=== PATIENT | female | born 1945 | race Caucasian/White ===

== ENCOUNTER 2018-03-04 12:08 | Observation (INO) | payer MEDICARE, BC ==
[~2018-03-04] VITALS: Ht 167.6 cm; Wt 79.2 kg
--- OUTSIDE RECORDS SUMMARY | 2018-03-04 12:11 | XMS REPORT | Clinical Summary ---
Author Author [facility] Address Unknown Phone Unavailable Care Team Providers Care Melt Room Operator Name Role Phone Iglesia Owens MD PCP Allergies No Known Allergies Medications End Date Status Medication Sig Dispensed Refills Start Date Active atorvastatin (LIPITOR) 40 Take 40 mg by 0 MG tablet mouth daily. Active donepezil (ARICEPT) 10 MG Take 10 mg by 0 tablet mouth nightly. Active fluticasone-vilanterol Inhale 1 0 (BREO ELLIPTA) 100-25 inhalations mcg/dose blister with daily as device powder for needed. inhalation Active Problems Problem Noted Date Hypokalemia 05/13/2017 Chest pain at rest 05/12/2017 Hyperlipidemia Dementia Asthma Encounters Care Team Description Date Type Specialty Jamie Magallanes MD Li, Frieda Noland MD Chest pain at rest (Primary Dx) 05/12/2017 Emergency General Internal Medicine - 05/14/2017 after 03/03/2017 Social History Date Tobacco Use Types Packs/Day Years Used Never Smoker Smokeless Tobacco: Never Used Alcohol Use Drinks/Week oz/Week Comments No Sex Assigned at Date Recorded Not on file Industry Job Start Date Occupation Not on file Not on file Not on file Travel End Travel History Travel Start No recent travel history available. Last Filed Vital Signs Time Taken Vital Sign Reading 05/14/2017 11:07 AM INTERNATIONAL RELATIONS PROFESSOR Blood Pressure 99/57 05/14/2017 11:07 AM INTERNATIONAL RELATIONS PROFESSOR Pulse 91 05/14/2017 11:07 AM INTERNATIONAL RELATIONS PROFESSOR Temperature 36.7 C (98.1 F) 05/14/2017 11:07 AM INTERNATIONAL RELATIONS PROFESSOR Respiratory Rate 18 05/14/2017 11:07 AM INTERNATIONAL RELATIONS PROFESSOR Oxygen Saturation 96% - Inhaled Oxygen - Concentration 05/12/2017 2:33 PM INTERNATIONAL RELATIONS PROFESSOR Weight 88.5 kg (195 lb 1.7 oz) 05/12/2017 2:33 PM INTERNATIONAL RELATIONS PROFESSOR Height 167.6 cm (5' 6") 05/12/2017 2:33 PM INTERNATIONAL RELATIONS PROFESSOR Body Mass Index 31.49 Plan of Treatment Health Maintenance Due Date Last Done Comments BREAST CANCER SCREENING 11/19/1997 COLON CANCER SCREENING 11/19/1997 SHINGRIX VACCINE (1 of 2) 11/19/1997 ZOSTER VACCINE 2007 PNEUMOCOCCAL 11/19/2012 POLYSACCHARIDE VACCINE AGE 65 AND OVER PNEUMOCOCCAL-13 11/19/2012 INFLUENZA VACCINE 11/05/2017 Procedures Comments Procedure Name Priority Date/Time Associated Diagnosis ZZESTIMATED GFR STAT 05/14/2017 9:31 AM INTERNATIONAL RELATIONS PROFESSOR BASIC METABOLIC PANEL STAT 05/14/2017 9:31 AM INTERNATIONAL RELATIONS PROFESSOR ECHOCARDIOGRAM 2D Routine 05/13/2017 COMPLETE W MMODE SPECTRAL 8:19 AM INTERNATIONAL RELATIONS PROFESSOR COLOR DOPPLER ([id number]) POC GLUCOSE Routine 05/13/2017 7:30 AM INTERNATIONAL RELATIONS PROFESSOR ZZESTIMATED GFR Routine 05/13/2017 5:10 AM INTERNATIONAL RELATIONS PROFESSOR TROPONIN Routine 05/13/2017 5:10 AM INTERNATIONAL RELATIONS PROFESSOR BASIC METABOLIC PANEL Routine 05/13/2017 5:10 AM INTERNATIONAL RELATIONS PROFESSOR HC COMPLETE BLD COUNT Routine 05/13/2017 W/AUTO DIFF 5:10 AM INTERNATIONAL RELATIONS PROFESSOR ZZESTIMATED GFR Timed 05/13/2017 1:50 AM INTERNATIONAL RELATIONS PROFESSOR THYROID STIMULATING Timed 05/13/2017 HORMONE 1:50 AM INTERNATIONAL RELATIONS PROFESSOR T3, FREE Timed 05/13/2017 1:50 AM INTERNATIONAL RELATIONS PROFESSOR PROTHROMBIN TIME WITH INR Timed 05/13/2017 1:50 AM INTERNATIONAL RELATIONS PROFESSOR PARTIAL THROMBOPLASTIN Timed 05/13/2017 TIME (PTT) 1:50 AM INTERNATIONAL RELATIONS PROFESSOR MAGNESIUM LEVEL Timed 05/13/2017 1:50 AM INTERNATIONAL RELATIONS PROFESSOR LIPID PANEL Timed 05/13/2017 1:50 AM INTERNATIONAL RELATIONS PROFESSOR HEMOGLOBIN A1C Timed 05/13/2017 1:50 AM INTERNATIONAL RELATIONS PROFESSOR COMPREHENSIVE METABOLIC Timed 05/13/2017 PANEL 1:50 AM INTERNATIONAL RELATIONS PROFESSOR HC COMPLETE BLD COUNT Timed 05/13/2017 W/AUTO DIFF 1:50 AM INTERNATIONAL RELATIONS PROFESSOR B NATRIURETIC PEPTIDE Timed 05/13/2017 1:50 AM INTERNATIONAL RELATIONS PROFESSOR TROPONIN Timed 05/13/2017 1:50 AM INTERNATIONAL RELATIONS PROFESSOR ECG 12-LEAD Routine 05/12/2017 9:15 PM INTERNATIONAL RELATIONS PROFESSOR TROPONIN Timed 05/12/2017 8:49 PM INTERNATIONAL RELATIONS PROFESSOR TROPONIN Timed 05/12/2017 7:22 PM INTERNATIONAL RELATIONS PROFESSOR XR CHEST 1 VW PORTABLE STAT 05/12/2017 4:32 PM INTERNATIONAL RELATIONS PROFESSOR ECG 12-LEAD Routine 05/12/2017 4:17 PM INTERNATIONAL RELATIONS PROFESSOR TROPONIN Timed 05/12/2017 3:20 PM INTERNATIONAL RELATIONS PROFESSOR ECG 12-LEAD STAT 05/12/2017 11:28 AM INTERNATIONAL RELATIONS PROFESSOR ZZESTIMATED GFR STAT 05/12/2017 11:07 AM INTERNATIONAL RELATIONS PROFESSOR B NATRIURETIC PEPTIDE STAT 05/12/2017 11:07 AM INTERNATIONAL RELATIONS PROFESSOR TROPONIN STAT 05/12/2017 11:07 AM INTERNATIONAL RELATIONS PROFESSOR HEPATIC FUNCTION PANEL STAT 05/12/2017 11:07 AM INTERNATIONAL RELATIONS PROFESSOR BASIC METABOLIC PANEL STAT 05/12/2017 11:07 AM INTERNATIONAL RELATIONS PROFESSOR PARTIAL THROMBOPLASTIN STAT 05/12/2017 TIME (PTT) 11:07 AM INTERNATIONAL RELATIONS PROFESSOR PROTHROMBIN TIME WITH INR STAT 05/12/2017 11:07 AM INTERNATIONAL RELATIONS PROFESSOR HC COMPLETE BLD COUNT STAT 05/12/2017 W/AUTO DIFF 11:07 AM INTERNATIONAL RELATIONS PROFESSOR after 03/03/2017 Results * Estimated GFR (05/14/2017 9:31 AM INTERNATIONAL RELATIONS PROFESSOR) Only the most recent of 4 results within the time period is included. GFR Non Af Amer 62 mL/min/1.73 m2 [facility] PATHOLOGY AND Cap That [facility] GFR Af Amer 75 mL/min/1.73 m2 [facility] OF Comment: PATHOLOGY AND Chronic kidney disease: <60 GENOMIC MEDICINE mL/min/1.73m2 Kidney failure: <15 mL/min/1.73m2 The estimated GFR is calculated from the IDMS-traceable Modification of Diet in Renal Disease Equation. The accuracy of the calculation is poor when the creatinine is normal. Calculated values >90 mL/min/1.73m2 are not reported. This equation has not been validated in children (<18 years), women, the elderly (>70 years), or ethnic groups other than Caucasians and Americans. Specimen Plasma specimen Performing Organization Address [facility] Cent[facility]ode Phone Number [place] [id number] [place] [id number] [place] [address] * Basic metabolic panel (05/14/2017 9:31 AM INTERNATIONAL RELATIONS PROFESSOR) Only the most recent of 3 results within the time period is included. Sodium 139 135 - 150 mEq/L [facility] OF PATHOLOGY AND Cap That [facility] Potassium 3.3 (L) 3.5 - 5.0 mEq/L [facility] OF PATHOLOGY AND Cap That [facility] Chloride 105 100 - 109 mEq/L [facility] OF PATHOLOGY AND Cap That [facility] CO2 23 (L) 24 - 32 mmol/L [facility] OF PATHOLOGY AND Cap That MEDICINE Anion gap 11 7 - 15 mEq/L [facility] OF Comment: PATHOLOGY AND Starting from July [facility] , anion gap calculation no longer incorporates potassium. Please note the change. BUN 12 7 - 18 mg/dL [facility] OF PATHOLOGY AND Cap That [facility] Creatinine 0.9 0.8 - 1.5 mg/dL [facility] OF PATHOLOGY AND Cap That [facility] Glucose 179 (H) 65 - 100 mg/dL [facility] PATHOLOGY AND Cap That MEDICINE Calcium 8.4 (L) 8.6 - 10.7 mg/dL [facility] PATHOLOGY AND Cap That [facility] Specimen Plasma specimen Performing Organization Address City/[facility] Centercode Phone Number [place] [address] [place] [address] PATHOLOGY AND GENOMIC MEDICINE * Echocardiogram complete w contrast and 3D if needed (05/13/2017 8:19 AM INTERNATIONAL RELATIONS PROFESSOR) Velocity Ratio (V1/V2) 0.91 m/s [facility] IVS,d 0.95 0.6 - 1.2 cm [facility] EF 49.34 % [facility] LVPWD,d 1.04 cm [facility] AoV Mean PG 4.05 mmHg [facility] AV LVOT peak gradient 6.27 mmHg [facility] MV mean gradient 0.85 mmHg [facility] MV valve area p 1/2 4.12 cm2 [facility] method PV Pk Grad 3.85 mmHg [facility] E/A ratio 1.12 [facility] E wave decelartion time 184.20 msec [facility] LVOT Diam,S 2.04 cm [facility] LVOT area 3.27 cm2 [facility] LVOT Vmax 1.25 m/s [facility] LVOT VTI 0.26 m [facility] AoV Peak PG 7.60 mmHg [facility] MV Peak E Flaco 0.74 m/s [facility] MV stenosis pressure 1/2 53.42 ms [facility] time MV Peak A Flaco 0.66 m/s [facility] Ao Root Diameter 2.76 cm [facility] AoV Area, Vmax 2.97 cm2 [facility] AoV Area, VTI 2.83 cm2 [facility] AoV Vmax 1.38 m/s [facility] IVS/LVPW,2D 0.92 [facility] Left Atrium Dimension 3.64 cm [facility] Anterior LV,d 3.83 cm [facility] LV,s 2.89 cm [facility] PV VMAX 0.98 m/s [facility] TR Vpeak 2.28 mm/s [facility] MV E A ratio 1.11 mmHg [facility] TR pk grad 20.81 mmHg [facility] MR peak grad 2.99 mmHg [facility] Ao Root Diameter 2.76 cm [facility] LV SYS VOL 32.02 ml [facility] LV CONWAY VOL 63.20 ml [facility] LV SV Teich 2D 31.18 ml [facility] LV Vol s Teich PSAX 32.02 ml [facility] LVOT CO 5.08 l/min [facility] LVOT HR for LVOT CO 60.75 bpm [facility] MV Vmax 0.87 m [facility] MV VTI Tips 0.25 m [facility] AoV Vmn 0.96 [facility] IVS s 2D 1.23 [facility] LV FS Cube 2D 24.50 [facility] LV FS Teich 2D 24.50 [facility] AoV VTI 0.30 m [facility] LV EF,2D 56.97 % [facility] MV AE ratio 0.90 [facility] LVOT Vmn 0.85 [facility] Aov area Vmn 2.91 cm2 [facility] LVOT mean grad 3.24 mmHg [facility] MAX Pred HR 150.52 [facility] 85 of MPHR 127.94 [facility] Calc MPHR 150.52 bpm [facility] IVS pct thck PLAX 29.52 % [facility] LV SV Cube 2D 32.05 ml [facility] LV vol d cube 2D 56.27 ml [facility] LV vol s cube 2D 24.21 ml [facility] LVPW pct thck PLAX 33.55 % [facility] LVPW s PLAX 1.38 cm [facility] MV Decel slope 3.99 m/s2 [facility] Pred Exer Dur R1 6.88 [facility] Pred METS R1 5.67 [facility] Narrative Performed At [facility] There is mild left ventricular concentric hypertrophy. Left Ventricular ejection fraction is 45 - 50%. Right ventricular size is normal. Left atrium size is mildly dilated. No pericardial effusion The mitral valve appears thickened. Trace mitral valve regurgitation There is moderate sclerosis of the aortic valve leaflets. Spectral Doppler shows impaired relaxation pattern of left ventricular diastolic filling. Performing Organization Address City/[facility]/Zipcode Phone Number [facility] [address] [place] [address] * POC glucose (05/13/2017 7:30 AM INTERNATIONAL RELATIONS PROFESSOR) POC glucose 87 65 - 100 mg/dL [facility] OF Comment: PATHOLOGY AND Meter ID: [id number] GENOMIC MEDICINE Dip Tanker: Ashley Ordaz Performing Organization Address City/State/Zipcode Phone Number [facility] OF [address] [place], [place] [address] [place] [address] PATHOLOGY AND GENOMIC MEDICINE * Troponin (05/13/2017 5:10 AM INTERNATIONAL RELATIONS PROFESSOR) Only the most recent of 6 results within the time period is included. Troponin <0.01 0.00 - 0.60 ng/mL [facility] OF Comment: PATHOLOGY AND 0.11 - 1.49 GENOMIC MEDICINE ng/mlMay indicate increased risk of acute coronary syndrome. >=1.5 ng/ml Consistent with acute myocardial infarction. The diagnostic value of a single normal or non-diagnostic result is questionable.Serial samples at 2-6 hour intervals are required to rule out acute myocardial injury. Specimen Plasma specimen Performing Organization Address City/State/Zipcode Phone Number [facility] [address] [address] PATHOLOGY AND GENOMIC MEDICINE * CBC with platelet and differential (05/13/2017 5:10 AM INTERNATIONAL RELATIONS PROFESSOR) Only the most recent of 3 results within the time period is included. WBC 6.7 4.2 - 11.0 k/uL [facility] OF PATHOLOGY AND GENOMIC MEDICINE RBC 4.57 4.04 - 5.86 m/uL [facility] OF PATHOLOGY AND GENOMIC MEDICINE HGB 12.8 11.5 - 15.3 g/dL [facility] OF PATHOLOGY AND GENOMIC MEDICINE HCT 39.3 34.0 - 45.0 % [facility] PATHOLOGY AND GENOMIC MEDICINE MCV 86.0 80.0 - 98.0 fL [facility] OF PATHOLOGY AND GENOMIC MEDICINE MCH 28.0 27.0 - 34.0 pg [facility] OF PATHOLOGY AND GENOMIC MEDICINE MCHC 32.6 31.5 - 36.5 g/dL [facility] OF PATHOLOGY AND GENOMIC MEDICINE RDW - SD 39.8 37.0 - 51.0 fL [facility] OF PATHOLOGY AND GENOMIC MEDICINE MPV 11.4 (H) 7.4 - 10.4 fL [facility] PATHOLOGY AND GENOMIC MEDICINE Platelet count 303 150 - 400 k/uL [facility] OF PATHOLOGY AND GENOMIC MEDICINE Nucleated RBC 0.00 /100 WBC [facility] OF PATHOLOGY AND GENOMIC MEDICINE Neutrophils 49.8 36.0 - 66.0 % [facility] OF PATHOLOGY AND GENOMIC MEDICINE Lymphocytes 33.6 24.0 - 44.0 % [facility] OF PATHOLOGY AND GENOMIC MEDICINE Monocytes 8.5 (H) 0.0 - 6.0 % [facility] OF PATHOLOGY AND GENOMIC MEDICINE Eosinophils 6.5 (H) 0.0 - 6.0 % [facility] OF PATHOLOGY AND GENOMIC MEDICINE Basophils 1.3 (H) 0.0 - 1.2 % [facility] PATHOLOGY AND GENOMIC MEDICINE Immature granulocytes 0.3 0.0 - 1.0 % [facility] OF PATHOLOGY AND Cap That MEDICINE Specimen Blood Performing Organization Address [facility] [place]erc[place] [address] PATHOLOGY AND Cap That MEDICINE * Partial thromboplastin time, activated (05/13/2017 1:50 AM INTERNATIONAL RELATIONS PROFESSOR) Only the most recent of 2 results within the time period is included. PTT 30.9 23.0 - 36.0 sec [facility] Comment: PATHOLOGY AND PTT therapeutic range for GENOMIC MEDICINE unfractionated heparin is 61.0-112.0 seconds which corresponds to Anti-Xa 0.3-0.7 U/ml. Note:Change in Panic Value The PTT Panic Value is changing from 110 sec. to 100 sec. due to new instrumentation and reagents. Correlation studies have been performed to validate this result. Specimen Blood Performing Organization Address [facility] [place] [address] PATHOLOGY AND Cap That MEDICINE * Prothrombin time with INR (05/13/2017 1:50 AM INTERNATIONAL RELATIONS PROFESSOR) Only the most recent of 2 results within the time period is included. Prothrombin time 13.3 12.0 - 15.0 sec [facility] OF PATHOLOGY AND Cap That MEDICINE INR 1.00 0.92 - 1.12 [facility] Comment: PATHOLOGY AND For patients on anticoagulant GENOMIC MEDICINE therapy, reference ranges below: Indication: INR Value Treatment of Venous Thrombosis, 2.0-3.0 pulmonary emboli, or prophylaxis of a venous thrombosis, or systemic emboli. High dose, high risk patients 3.0-4.5 with mechanical valves. NOTE:INR values over 3.0 are sometimes associated with gastrointestinal hemorrhage, especially values over 4.0. Specimen Blood Performing Organization Address [facility] [place] [address] PATHOLOGY AND Cap That MEDICINE * T3, free (05/13/2017 1:50 AM INTERNATIONAL RELATIONS PROFESSOR) T3, free 2.49 2.18 - 3.98 pmol/L [facility] OF PATHOLOGY AND Cap That MEDICINE Specimen Plasma specimen Performing Organization Address City/[facility] [place] [address] PATHOLOGY AND Cap That MEDICINE * Thyroid stimulating hormone (05/13/2017 1:50 AM INTERNATIONAL RELATIONS PROFESSOR) TSH 1.80 0.38 - 4.82 uIU/mL [facility] OF PATHOLOGY AND GENOMIC MEDICINE Specimen Plasma specimen Performing Organization Address City/[facility] [place] [address] PATHOLOGY AND Cap That MEDICINE * B natriuretic peptide (05/13/2017 1:50 AM INTERNATIONAL RELATIONS PROFESSOR) Only the most recent of 2 results within the time period is included. BNP 39 0 - 100 pg/mL [facility] OF PATHOLOGY AND GENOMIC MEDICINE Specimen Blood Performing Organization Address [facility] [place]erc[place] [address] PATHOLOGY AND Cap That MEDICINE * Magnesium level (05/13/2017 1:50 AM INTERNATIONAL RELATIONS PROFESSOR) Magnesium 2.00 1.60 - 2.40 mg/dL [facility] OF PATHOLOGY AND GENOMIC MEDICINE Specimen Plasma specimen Performing Organization Address [facility] [place] [address] PATHOLOGY AND Cap That MEDICINE * Hemoglobin A1c (05/13/2017 1:50 AM INTERNATIONAL RELATIONS PROFESSOR) Hemoglobin A1C 5.9 4.0 - 6.0 % [facility] Comment: PATHOLOGY AND GENOMIC MEDICINE Less than 6% - Goal of therapy for Type II Diabetes Less than 7%-Goal of therapy for Type I Diabetes Less than 8%-Accepta ble control for Type I or Type II Diabetes Greater than 8%-Unacceptabl e control; action indicated. ([id number]) Specimen Blood Performing Organization Address [facility] [place] [address] PATHOLOGY AND Cap That MEDICINE * Lipid panel (05/13/2017 1:50 AM INTERNATIONAL RELATIONS PROFESSOR) Cholesterol 202 (H) 120 - 200 mg/dL [facility] OF PATHOLOGY AND GENOMIC MEDICINE Triglycerides 124 50 - 150 mg/dL [facility] OF PATHOLOGY AND GENOMIC MEDICINE HDL cholesterol 34 (L) 40 - 60 mg/dL [facility] OF PATHOLOGY AND GENOMIC MEDICINE LDL cholesterol 160Comment: Result obtained by mg/dL [facility] direct LDL measurement PATHOLOGY AND GENOMIC MEDICINE Specimen Plasma specimen Performing Organization Address City/[facility] Centercode Phone Number [facility] [address] [place] [place] [address] PATHOLOGY AND GENOMIC MEDICINE * Comprehensive metabolic panel (05/13/2017 1:50 AM INTERNATIONAL RELATIONS PROFESSOR) Sodium 139 135 - 150 mEq/L [facility] OF PATHOLOGY AND GENOMIC MEDICINE Potassium 2.9 (LL) 3.5 - 5.0 mEq/L [facility] OF Comment: PATHOLOGY AND Results called to and read [facility] back by Crys Ga/OBS at 05/13/201702:42by ln. Chloride 104 100 - 109 mEq/L [facility] OF PATHOLOGY AND GENOMIC MEDICINE CO2 26 24 - 32 mmol/L [facility] OF PATHOLOGY AND GENOMIC MEDICINE Anion gap 9 7 - 15 mEq/L [facility] OF Comment: PATHOLOGY AND Starting from July [facility] , anion gap calculation no longer incorporates potassium. Please note the change. BUN 16 7 - 18 mg/dL [facility] OF PATHOLOGY AND GENOMIC MEDICINE Creatinine 0.6 (L) 0.8 - 1.5 mg/dL [facility] OF PATHOLOGY AND GENOMIC MEDICINE Glucose 86 65 - 100 mg/dL [facility] OF PATHOLOGY AND GENOMIC MEDICINE Calcium 8.3 (L) 8.6 - 10.7 mg/dL [facility] OF PATHOLOGY AND GENOMIC MEDICINE Protein 6.6 6.3 - 8.2 g/dL [facility] OF PATHOLOGY AND GENOMIC MEDICINE Albumin 3.1 (L) 3.2 - 5.0 g/dL [facility] OF PATHOLOGY AND GENOMIC MEDICINE A/G ratio 0.9 0.7 - 3.8 [facility] OF PATHOLOGY AND GENOMIC MEDICINE Alkaline phosphatase 77 30 - 120 U/L [facility] OF PATHOLOGY AND GENOMIC MEDICINE AST 10 (L) 15 - 37 U/L [facility] OF PATHOLOGY AND GENOMIC MEDICINE ALT 14 (L) 30 - 65 U/L [facility] OF PATHOLOGY AND GENOMIC MEDICINE Total bilirubin 0.5 0.2 - 1.2 mg/dL [facility] OF PATHOLOGY AND GENOMIC MEDICINE Specimen Plasma specimen Performing Organization Address City/[facility]/Zipcode Phone Number [facility] [address] [place] [address] PATHOLOGY AND GENOMIC MEDICINE * ECG 12 lead (05/12/2017 9:15 PM INTERNATIONAL RELATIONS PROFESSOR) Only the most recent of 3 results within the time period is included. Ventricular rate 62 [facility] Atrial rate 62 [facility] NM interval 130 [facility] QRSD interval 86 [facility] QT interval 426 [facility] QTC interval 432 [facility] P axis 1 53 [facility] QRS axis 1 53 [facility] T wave axis 59 [facility] MUSE EKG impression Normal sinus rhythm-Normal [facility] MUSE ECG-In automated comparison with ECG of 12-MAY-2017 16:17,-No significant change was found- Performing Organization Address [facility]ercofl Phone Number [facility] MUSE [address] [place] [address] * XR Chest 1 Vw Portable (05/12/2017 4:32 PM INTERNATIONAL RELATIONS PROFESSOR) Narrative Performed At EXAMINATION:XR CHEST 1 VW PORTABLE [facility] CLINICAL HISTORY:Chest Pain COMPARISON:None IMPRESSION: Unremarkable single view chest The lungs are clear. The heart is not enlarged. Mild vascular ectasia of the aorta is present The bony structures are within normal limits. [id number] Procedure Note Hm Interface, Radiology Results Incoming - 05/12/2017 4:38 PM INTERNATIONAL RELATIONS PROFESSOR EXAMINATION: XR CHEST 1 VW PORTABLE CLINICAL HISTORY: Chest Pain COMPARISON: None IMPRESSION: Unremarkable single view chest The lungs are clear. The heart is not enlarged. Mild vascular ectasia of the aorta is present The bony structures are within normal limits. [id number] Performing Organization Address [facility]ercofl Phone Number [facility] [address] [place] [address] * Hepatic function panel (05/12/2017 11:07 AM INTERNATIONAL RELATIONS PROFESSOR) Albumin 3.3 3.2 - 5.0 g/dL [facility] PATHOLOGY AND GENOMIC MEDICINE Total bilirubin 0.5 0.2 - 1.2 mg/dL [facility] OF PATHOLOGY AND GENOMIC MEDICINE Bilirubin direct 0.1 0.0 - 0.4 mg/dL [facility] OF PATHOLOGY AND GENOMIC MEDICINE Alkaline phosphatase 84 30 - 120 U/L [facility] OF PATHOLOGY AND GENOMIC MEDICINE Protein 7.0 6.3 - 8.2 g/dL [facility] PATHOLOGY AND GENOMIC MEDICINE ALT 13 (L) 30 - 65 U/L [facility] OF PATHOLOGY AND GENOMIC MEDICINE AST 7 (L) 15 - 37 U/L [facility] OF PATHOLOGY AND GENOMIC MEDICINE Specimen Plasma specimen Performing Organization Address City/State/Zipcode Phone Number [facility] [place] [address] PATHOLOGY AND GENOMIC MEDICINE after 03/03/2017 Insurance Payer Benefit Subscriber ID Type Phone Address Plan / Group BCBS BCBS xxxxxxxxx PPO CHOICE PPO/[facility] [employer] EMPL PPO MEDICARE MEDICARE xxxxxxxxxx Medicare [place], [place] PART A AND B Advance Directives Patient has advance care planning documents on file. For more information, hilary null contact: Leobardo Forrest [address] [place] [address]
[2018-03-04] MEDS ORDERED: ALBUTEROL/IPRATROPIUM 3 ML NEB NEB ONE (12:30)
[2018-03-04] MEDS ORDERED: METHYLPREDNISOLONE SOD SUCC 125 MG/2ML VIAL IV ONE (12:30)
--- NOTE | 2018-03-04 14:15 | Diagnostic Imaging Report ---
EXAMINATION: CHEST 2 VIEWS INDICATION: Concern for pneumonia, bilateral wheezing for several days COMPARISON: None FINDINGS: PA and lateral views TUBES and LINES: None. LUNGS: Mild flattening of the diaphragms suggestive of air trapping. No interstitial thickening or consolidation. No soft tissue mass mild bronchial wall thickening. PLEURA: No pleural effusion or pneumothorax. HEART AND MEDIASTINUM: The heart is normal in size. The descending thoracic aorta is ectatic. BONES AND SOFT TISSUES: The bones are diffusely demineralized. No focal osseous lesions. Soft tissues are unremarkable. UPPER ABDOMEN: No free air under the diaphragm. IMPRESSION: Mild pulmonary hyperinflation consistent with small airways disease. Mild bronchial wall thickening suggestive of bronchitis. No confluent infiltrates to suggest pneumonia. Signed by: Dr. Caron Magana MD on 03/04/2018 2:11 PM
[2018-03-04 14:17] LABS: BASOPHILS # (AUTO) 0.1 (0.0-0.1); BASOPHILS % 1.2 % (0.0-1.0); EOSINOPHILS # (AUTO) 0.4 (0.0-0.4); EOSINOPHILS % 4.5 % (0.0-6.0); HEMATOCRIT 44.1 % (34.2-44.1); HEMOGLOBIN 14.6 g/dL (12.0-16.0); LYMPHOCYTES # (AUTO) 2.1 (1.0-3.2); LYMPHOCYTES % 22.3 % (18.0-39.1); MEAN CORPUSCULAR HEMOGLOBIN 28.8 pg (28-32); MEAN CORPUSCULAR HGB CONC 33.1 g/dL (31-35); MONOCYTES # (AUTO) 0.9 (0.2-0.8); NEUTROPHILS # (AUTO) 5.9 (2.1-6.9); NEUTROPHILS % 62.7 % (38.7-80.0); PLATELET COUNT 350 x10e3/uL (140-360); RED BLOOD COUNT 5.07 x10e6/uL (3.6-5.1); RED CELL DISTRIBUTION WIDTH 12.3 % (11.7-14.4)
[2018-03-04 14:34] LABS: ALANINE AMINOTRANSFERASE 10 IU/L (0-55); ALBUMIN 4.1 g/dL (3.5-5.0); ALBUMIN/GLOBULIN RATIO 1.5 (0.8-2.0); ALKALINE PHOSPHATASE 74 IU/L (40-150); ANION GAP 13.5 mmol/L (8-16); BLOOD UREA NITROGEN 21 mg/dL (7-26); BUN/CREATININE RATIO 30 (6-25); CALCIUM 9.8 mg/dL (8.4-10.2); CARBON DIOXIDE 24 mmol/L (22-29); CHLORIDE 103 mmol/L (98-107); EST GLOMERULAR FILTRATION RATE > 60 ML/MIN (60-); GLUCOSE 97 mg/dL (74-118); POTASSIUM 3.5 mmol/L (3.5-5.1); SODIUM 137 mmol/L (136-145)
--- OUTSIDE RECORDS SUMMARY | 2018-03-04 19:18 | XMS REPORT ---
Author Author [facility] Address Unknown Phone Unavailable Care Team Providers Care Fence Rider Name Role Phone Mary CARVALHO Unavailable Unavailable Problems This patient has no known problems. Allergies, Adverse Reactions, Alerts This patient has no known allergies or adverse reactions. Medications This patient has no known medications. Results Test Description Test Time Test Comments Text Results Atomic Results Result Comments CHEST 2 VIEWS 2018-03-04 14:10:00 [facility] [address] [address] Patient Name: LO CELIS MR #: [id number] : 1945 Age/Sex: 72/F Req #: [id number] Adm Physician: Ordered by: NELLY DO [employer] Report #: [id number] Location: ER Room/Bed: Procedure: [id number] DX/CHEST 2 VIEWS Exam Date: Exam Time: REPORT STATUS: Signed EXAMINATION: CHEST 2 VIEWS INDICATION: Concern for pneumonia, bilateral wheezing for several days COMPARISON: None FINDINGS: PA and lateral views TUBES and LINES: None. LUNGS: Mild flattening of the diaphragms suggestive of air trapping. No interstitial thickening or consolidation. No soft tissue mass mild bronchial wall thickening. PLEURA: No pleural effusion or pneumothorax. HEART AND MEDIASTINUM: The heart is normal in size. The descending thoracic aorta is ectatic. BONES AND SOFT TISSUES: The bones are diffusely demineralized. No focal osseous lesions. Soft tissues are unremarkable. UPPER ABDOMEN: No free air under the diaphragm. IMPRESSION: Mild pulmonary hyperinflation consistent with small airways disease. Mild bronchial wall thickening suggestive of bronchitis. No confluent infiltrates to suggest pneumonia. Signed by: Dr. Steffanie Magana MD on 03/04/2018 2:11 PM Dictated By: STEFFANIE MAGANA MD [id number] Transcribed By: GEORGINA on 03/04/18 1411 COPY TO: NELLY DO NP
--- OUTSIDE RECORDS SUMMARY | 2018-03-04 19:18 | XMS REPORT | Clinical Summary ---
Author Author [facility] Address Unknown Phone Unavailable Care Team Providers Care Process Description Writer Name Role Phone Iglesia Owens MD PCP [...] Taken Vital Sign Reading 05/14/2017 11:07 AM JEWELRY SETTER Blood Pressure 99/57 05/14/2017 11:07 AM JEWELRY SETTER Pulse 91 05/14/2017 11:07 AM JEWELRY SETTER Temperature 36.7 C (98.1 F) 05/14/2017 11:07 AM JEWELRY SETTER Respiratory Rate 18 05/14/2017 11:07 AM JEWELRY SETTER Oxygen Saturation 96% - Inhaled Oxygen - Concentration 05/12/2017 2:33 PM JEWELRY SETTER Weight 88.5 kg (195 lb 1.7 oz) 05/12/2017 2:33 PM JEWELRY SETTER Height 167.6 cm (5' 6") 05/12/2017 2:33 PM JEWELRY SETTER Body Mass Index 31.49 Plan of Treatment Health Maintenance Due Date Last Done Comments BREAST CANCER SCREENING 11/19/1997 COLON CANCER SCREENING 11/19/1997 SHINGRIX VACCINE (1 of 2) 11/19/1997 ZOSTER VACCINE 2007 PNEUMOCOCCAL 11/19/2012 POLYSACCHARIDE VACCINE AGE 65 AND OVER PNEUMOCOCCAL-13 11/19/2012 INFLUENZA VACCINE 11/05/2017 Procedures Comments Procedure Name Priority Date/Time Associated Diagnosis ZZESTIMATED GFR STAT 05/14/2017 9:31 AM JEWELRY SETTER BASIC METABOLIC PANEL STAT 05/14/2017 9:31 AM JEWELRY SETTER ECHOCARDIOGRAM 2D Routine 05/13/2017 COMPLETE W MMODE SPECTRAL 8:19 AM JEWELRY SETTER COLOR DOPPLER ([id number]) POC GLUCOSE Routine 05/13/2017 7:30 AM JEWELRY SETTER ZZESTIMATED GFR Routine 05/13/2017 5:10 AM JEWELRY SETTER TROPONIN Routine 05/13/2017 5:10 AM JEWELRY SETTER BASIC METABOLIC PANEL Routine 05/13/2017 5:10 AM JEWELRY SETTER HC COMPLETE BLD COUNT Routine 05/13/2017 W/AUTO DIFF 5:10 AM JEWELRY SETTER ZZESTIMATED GFR Timed 05/13/2017 1:50 AM JEWELRY SETTER THYROID STIMULATING Timed 05/13/2017 HORMONE 1:50 AM JEWELRY SETTER T3, FREE Timed 05/13/2017 1:50 AM JEWELRY SETTER PROTHROMBIN TIME WITH INR Timed 05/13/2017 1:50 AM JEWELRY SETTER PARTIAL THROMBOPLASTIN Timed 05/13/2017 TIME (PTT) 1:50 AM JEWELRY SETTER MAGNESIUM LEVEL Timed 05/13/2017 1:50 AM JEWELRY SETTER LIPID PANEL Timed 05/13/2017 1:50 AM JEWELRY SETTER HEMOGLOBIN A1C Timed 05/13/2017 1:50 AM JEWELRY SETTER COMPREHENSIVE METABOLIC Timed 05/13/2017 PANEL 1:50 AM JEWELRY SETTER HC COMPLETE BLD COUNT Timed 05/13/2017 W/AUTO DIFF 1:50 AM JEWELRY SETTER B NATRIURETIC PEPTIDE Timed 05/13/2017 1:50 AM JEWELRY SETTER TROPONIN Timed 05/13/2017 1:50 AM JEWELRY SETTER ECG 12-LEAD Routine 05/12/2017 9:15 PM JEWELRY SETTER TROPONIN Timed 05/12/2017 8:49 PM JEWELRY SETTER TROPONIN Timed 05/12/2017 7:22 PM JEWELRY SETTER XR CHEST 1 VW PORTABLE STAT 05/12/2017 4:32 PM JEWELRY SETTER ECG 12-LEAD Routine 05/12/2017 4:17 PM JEWELRY SETTER TROPONIN Timed 05/12/2017 3:20 PM JEWELRY SETTER ECG 12-LEAD STAT 05/12/2017 11:28 AM JEWELRY SETTER ZZESTIMATED GFR STAT 05/12/2017 11:07 AM JEWELRY SETTER B NATRIURETIC PEPTIDE STAT 05/12/2017 11:07 AM JEWELRY SETTER TROPONIN STAT 05/12/2017 11:07 AM JEWELRY SETTER HEPATIC FUNCTION PANEL STAT 05/12/2017 11:07 AM JEWELRY SETTER BASIC METABOLIC PANEL STAT 05/12/2017 11:07 AM JEWELRY SETTER PARTIAL THROMBOPLASTIN STAT 05/12/2017 TIME (PTT) 11:07 AM JEWELRY SETTER PROTHROMBIN TIME WITH INR STAT 05/12/2017 11:07 AM JEWELRY SETTER HC COMPLETE BLD COUNT STAT 05/12/2017 W/AUTO DIFF 11:07 AM JEWELRY SETTER after 03/03/2017 Results * Estimated GFR (05/14/2017 9:31 AM JEWELRY SETTER) Only the most recent of 4 results within the time period is included. GFR Non Af Amer 62 mL/min/1.73 m2 [facility] DEPARTMENT OF PATHOLOGY AND [employer] [place] [facility] GFR Af Amer 75 mL/min/1.73 m2 [facility] DEPARTMENT OF Comment: PATHOLOGY AND Chronic kidney [...] Americans. Specimen Plasma specimen Performing Organization Address [facility] Cent[facility]ode Phone Number [id number] [place] [address] * Basic metabolic panel (05/14/2017 9:31 AM JEWELRY SETTER) Only the most recent of 3 results within the time period is included. Sodium 139 135 - 150 mEq/L [facility] DEPARTMENT OF PATHOLOGY AND [employer] [place] [facility] Potassium 3.3 (L) 3.5 - 5.0 mEq/L [facility] DEPARTMENT OF PATHOLOGY AND [employer] [place] [facility] Chloride 105 100 - 109 mEq/L [facility] DEPARTMENT OF PATHOLOGY AND [employer] [place] [facility] CO2 23 (L) 24 - 32 mmol/L [facility] DEPARTMENT OF PATHOLOGY AND [employer] [place] [facility] Anion gap 11 7 - 15 mEq/L [facility] DEPARTMENT OF Comment: PATHOLOGY AND Starting from July [facility] , anion gap calculation no longer incorporates potassium. Please note the change. BUN 12 7 - 18 mg/dL [facility] DEPARTMENT OF PATHOLOGY AND [employer] [place] [facility] Creatinine 0.9 0.8 - 1.5 mg/dL [facility] DEPARTMENT OF PATHOLOGY AND [employer] [place] [facility] Glucose 179 (H) 65 - 100 mg/dL [facility] PATHOLOGY AND [employer] [place] [facility] Calcium 8.4 (L) 8.6 - 10.7 mg/dL [facility] DEPARTMENT PATHOLOGY AND [employer] [place] [facility] Specimen Plasma specimen Performing Organization Address City/[facility] Centercode Phone Number [address] [place] [address] PATHOLOGY AND GENOMIC MEDICINE * Echocardiogram complete w contrast and 3D if needed (05/13/2017 8:19 AM JEWELRY SETTER) Velocity Ratio (V1/V2) 0.91 m/s [facility] [...] left ventricular diastolic filling. Performing Organization Address City/[facility]/Zipcode Phone Number [facility] [address] [place] [address] * POC glucose (05/13/2017 7:30 AM JEWELRY SETTER) POC glucose 87 65 - 100 mg/dL [facility] DEPARTMENT OF Comment: PATHOLOGY AND Meter ID: [id number] GENOMIC MEDICINE Reconciliation Analyst: Ashley Ordaz Performing Organization Address City/State/Zipcode Phone Number [facility] DEPARTMENT OF [address] [place], [place] [address] [place] [address] PATHOLOGY AND GENOMIC MEDICINE * Troponin (05/13/2017 5:10 AM JEWELRY SETTER) Only the most recent of 6 results within the time period is included. Troponin <0.01 0.00 - 0.60 ng/mL [facility] DEPARTMENT OF Comment: PATHOLOGY AND 0.11 - 1.49 GENOMIC MEDICINE ng/mlMay indicate increased risk of acute coronary syndrome. >=1.5 ng/ml Consistent with acute myocardial infarction. The diagnostic value of a single normal or non-diagnostic result is questionable.Serial samples at 2-6 hour intervals are required to rule out acute myocardial injury. Specimen Plasma specimen Performing Organization Address City/State/Zipcode Phone Number [facility] [address] [place] [address] PATHOLOGY AND GENOMIC MEDICINE * CBC with platelet and differential (05/13/2017 5:10 AM JEWELRY SETTER) Only the most recent of 3 results within the time period is included. WBC 6.7 4.2 - 11.0 k/uL [facility] DEPARTMENT OF PATHOLOGY AND GENOMIC MEDICINE RBC 4.57 4.04 - 5.86 m/uL [facility] DEPARTMENT OF PATHOLOGY AND GENOMIC MEDICINE HGB 12.8 11.5 - 15.3 g/dL [facility] DEPARTMENT OF PATHOLOGY AND GENOMIC MEDICINE HCT 39.3 34.0 - 45.0 % [facility] DEPARTMENT PATHOLOGY AND GENOMIC MEDICINE MCV 86.0 80.0 - 98.0 fL [facility] DEPARTMENT OF PATHOLOGY AND GENOMIC MEDICINE MCH 28.0 27.0 - 34.0 pg [facility] DEPARTMENT OF PATHOLOGY AND GENOMIC MEDICINE MCHC 32.6 31.5 - 36.5 g/dL [facility] DEPARTMENT OF PATHOLOGY AND GENOMIC MEDICINE RDW - SD 39.8 37.0 - 51.0 fL [facility] DEPARTMENT OF PATHOLOGY AND GENOMIC MEDICINE MPV 11.4 (H) 7.4 - 10.4 fL [facility] DEPARTMENT OF PATHOLOGY AND GENOMIC MEDICINE Platelet count 303 150 - 400 k/uL [facility] DEPARTMENT OF PATHOLOGY AND GENOMIC MEDICINE Nucleated RBC 0.00 /100 WBC [facility] DEPARTMENT OF PATHOLOGY AND GENOMIC MEDICINE Neutrophils 49.8 36.0 - 66.0 % [facility] DEPARTMENT OF PATHOLOGY AND GENOMIC MEDICINE Lymphocytes 33.6 24.0 - 44.0 % [facility] DEPARTMENT OF PATHOLOGY AND GENOMIC MEDICINE Monocytes 8.5 (H) 0.0 - 6.0 % [facility] DEPARTMENT OF PATHOLOGY AND GENOMIC MEDICINE Eosinophils 6.5 (H) 0.0 - 6.0 % [facility] DEPARTMENT OF PATHOLOGY AND GENOMIC MEDICINE Basophils 1.3 (H) 0.0 - 1.2 % [facility] PATHOLOGY AND GENOMIC MEDICINE Immature granulocytes 0.3 0.0 - 1.0 % [facility] DEPARTMENT OF PATHOLOGY AND [employer] [place] [facility] Specimen Blood Performing Organization Address [facility] [place] [address] PATHOLOGY AND [employer] [place] [facility] * Partial thromboplastin time, activated (05/13/2017 1:50 AM JEWELRY SETTER) Only the most recent of 2 results within the time period is included. PTT 30.9 23.0 - 36.0 sec [facility] DEPARTMENT OF Comment: PATHOLOGY AND PTT therapeutic range for GENOMIC MEDICINE unfractionated heparin is 61.0-112.0 seconds which corresponds to Anti-Xa 0.3-0.7 U/ml. Note:Change in Panic Value The PTT Panic Value is changing from 110 sec. to 100 sec. due to new instrumentation and reagents. Correlation studies have been performed to validate this result. Specimen Blood Performing Organization Address [facility] [place] [address] PATHOLOGY AND [employer] [place] [facility] * Prothrombin time with INR (05/13/2017 1:50 AM JEWELRY SETTER) Only the most recent of 2 results within the time period is included. Prothrombin time 13.3 12.0 - 15.0 sec [facility] DEPARTMENT OF PATHOLOGY AND [employer] [place] [facility] INR 1.00 0.92 - 1.12 [facility] DEPARTMENT OF Comment: PATHOLOGY AND For patients on anticoagulant GENOMIC MEDICINE therapy, reference ranges below: Indication: INR Value Treatment of Venous Thrombosis, 2.0-3.0 pulmonary emboli, or prophylaxis of a venous thrombosis, or systemic emboli. High dose, high risk patients 3.0-4.5 with mechanical valves. NOTE:INR values over 3.0 are sometimes associated with gastrointestinal hemorrhage, especially values over 4.0. Specimen Blood Performing Organization Address [facility] [place] [address] PATHOLOGY AND [employer] [place] [facility] * T3, free (05/13/2017 1:50 AM JEWELRY SETTER) T3, free 2.49 2.18 - 3.98 pmol/L [facility] DEPARTMENT OF PATHOLOGY AND [employer] [place] [facility] Specimen Plasma specimen Performing Organization Address City/[facility] [place] [address] PATHOLOGY AND [employer] [place] [facility] * Thyroid stimulating hormone (05/13/2017 1:50 AM JEWELRY SETTER) TSH 1.80 0.38 - 4.82 uIU/mL [facility] DEPARTMENT OF PATHOLOGY AND GENOMIC MEDICINE Specimen Plasma specimen Performing Organization Address City/[facility] [place] [address] PATHOLOGY AND [employer] [place] [facility] * B natriuretic peptide (05/13/2017 1:50 AM JEWELRY SETTER) Only the most recent of 2 results within the time period is included. BNP 39 0 - 100 pg/mL [facility] DEPARTMENT OF PATHOLOGY AND GENOMIC MEDICINE Specimen Blood Performing Organization Address [facility] [place] [address] PATHOLOGY AND [employer] [place] [facility]INE * Magnesium level (05/13/2017 1:50 AM JEWELRY SETTER) Magnesium 2.00 1.60 - 2.40 mg/dL [facility] DEPARTMENT OF PATHOLOGY AND GENOMIC MEDICINE Specimen Plasma specimen Performing Organization Address [facility] [place] [address] PATHOLOGY AND [employer] [place] [facility] * Hemoglobin A1c (05/13/2017 1:50 AM JEWELRY SETTER) Hemoglobin A1C 5.9 4.0 - 6.0 % [facility] DEPARTMENT OF Comment: PATHOLOGY AND GENOMIC MEDICINE Less than 6% - Goal of therapy for Type II Diabetes Less than 7%-Goal of therapy for Type I Diabetes Less than 8%-Accepta ble control for Type I or Type II Diabetes Greater than 8%-Unacceptabl e control; action indicated. ([id number]) Specimen Blood Performing Organization Address [facility] [place] [address] PATHOLOGY AND [employer] [place] [facility] * Lipid panel (05/13/2017 1:50 AM JEWELRY SETTER) Cholesterol 202 (H) 120 - 200 mg/dL [facility] DEPARTMENT OF PATHOLOGY AND GENOMIC MEDICINE Triglycerides 124 50 - 150 mg/dL [facility] DEPARTMENT OF PATHOLOGY AND GENOMIC MEDICINE HDL cholesterol 34 (L) 40 - 60 mg/dL [facility] DEPARTMENT OF PATHOLOGY AND GENOMIC MEDICINE LDL cholesterol 160Comment: Result obtained by mg/dL [facility] DEPARTMENT OF direct LDL measurement PATHOLOGY AND GENOMIC MEDICINE Specimen Plasma specimen Performing Organization Address City/[facility] Centercode Phone Number [facility] [address] [place] [address] PATHOLOGY AND GENOMIC MEDICINE * Comprehensive metabolic panel (05/13/2017 1:50 AM JEWELRY SETTER) Sodium 139 135 - 150 mEq/L [facility] DEPARTMENT OF PATHOLOGY AND GENOMIC MEDICINE Potassium 2.9 (LL) 3.5 - 5.0 mEq/L [facility] DEPARTMENT OF Comment: PATHOLOGY AND Results called to and read [facility] back by Crys Ga/OBS at 05/13/201702:42by ln. Chloride 104 100 - 109 mEq/L [facility] DEPARTMENT OF PATHOLOGY AND GENOMIC MEDICINE CO2 26 24 - 32 mmol/L [facility] DEPARTMENT OF PATHOLOGY AND GENOMIC MEDICINE Anion gap 9 7 - 15 mEq/L [facility] DEPARTMENT OF Comment: PATHOLOGY AND Starting from July [facility] , anion gap calculation no longer incorporates potassium. Please note the change. BUN 16 7 - 18 mg/dL [facility] DEPARTMENT OF PATHOLOGY AND GENOMIC MEDICINE Creatinine 0.6 (L) 0.8 - 1.5 mg/dL [facility] DEPARTMENT OF PATHOLOGY AND GENOMIC MEDICINE Glucose 86 65 - 100 mg/dL [facility] DEPARTMENT OF PATHOLOGY AND GENOMIC MEDICINE Calcium 8.3 (L) 8.6 - 10.7 mg/dL [facility] DEPARTMENT OF PATHOLOGY AND GENOMIC MEDICINE Protein 6.6 6.3 - 8.2 g/dL [facility] DEPARTMENT OF PATHOLOGY AND GENOMIC MEDICINE Albumin 3.1 (L) 3.2 - 5.0 g/dL [facility] DEPARTMENT OF PATHOLOGY AND GENOMIC MEDICINE A/G ratio 0.9 0.7 - 3.8 [facility] DEPARTMENT OF PATHOLOGY AND GENOMIC MEDICINE Alkaline phosphatase 77 30 - 120 U/L [facility] DEPARTMENT OF PATHOLOGY AND GENOMIC MEDICINE AST 10 (L) 15 - 37 U/L [facility] DEPARTMENT OF PATHOLOGY AND GENOMIC MEDICINE ALT 14 (L) 30 - 65 U/L [facility] DEPARTMENT OF PATHOLOGY AND GENOMIC MEDICINE Total bilirubin 0.5 0.2 - 1.2 mg/dL [facility] DEPARTMENT OF PATHOLOGY AND GENOMIC MEDICINE Specimen Plasma specimen Performing Organization Address City/[facility]/Zipcode Phone Number [facility] [address] [place] [address] PATHOLOGY AND GENOMIC MEDICINE * ECG 12 lead (05/12/2017 9:15 PM JEWELRY SETTER) Only the most recent of 3 results within the time period is included. Ventricular rate 62 [facility] Atrial rate 62 [facility] NH interval 130 [facility] QRSD interval 86 [facility] QT interval 426 [facility] QTC interval 432 [facility] P axis 1 53 [facility] QRS axis 1 53 [facility] T wave axis [address] [facility] MUSE EKG impression Normal sinus rhythm-Normal [facility] M[facility] ECG-In automated comparison with ECG of 12-MAY-2017 16:17,-No significant change was found- Performing Organization Address [facility] Center[facility]il Phone Number [facility] MUSE [address] [place] [address] * XR Chest 1 Vw Portable (05/12/2017 4:32 PM JEWELRY SETTER) Narrative Performed At EXAMINATION:XR CHEST 1 VW PORTABLE [facility] CLINICAL HISTORY:Chest Pain COMPARISON:None IMPRESSION: Unremarkable single view chest The lungs are clear. The heart is not enlarged. Mild vascular ectasia of the aorta is present The bony structures are within normal limits. [id number] Procedure Note Hm Interface, Radiology Results Incoming - 05/12/2017 4:38 PM JEWELRY SETTER EXAMINATION: XR CHEST 1 VW PORTABLE CLINICAL HISTORY: Chest Pain COMPARISON: None IMPRESSION: Unremarkable single view chest The lungs are clear. The heart is not enlarged. Mild vascular ectasia of the aorta is present The bony structures are within normal limits. [id number] Performing Organization Address [facility] Phone Number [facility] [address] [place] [address] * Hepatic function panel (05/12/2017 11:07 AM JEWELRY SETTER) Albumin 3.3 3.2 - 5.0 g/dL [facility] DEPARTMENT OF PATHOLOGY AND GENOMIC MEDICINE Total bilirubin 0.5 0.2 - 1.2 mg/dL [facility] DEPARTMENT OF PATHOLOGY AND GENOMIC MEDICINE Bilirubin direct 0.1 0.0 - 0.4 mg/dL [facility] DEPARTMENT OF PATHOLOGY AND GENOMIC MEDICINE Alkaline phosphatase 84 30 - 120 U/L [facility] DEPARTMENT OF PATHOLOGY AND GENOMIC MEDICINE Protein 7.0 6.3 - 8.2 g/dL [facility] DEPARTMENT OF PATHOLOGY AND GENOMIC MEDICINE ALT 13 (L) 30 - 65 U/L [facility] DEPARTMENT OF PATHOLOGY AND GENOMIC MEDICINE AST 7 (L) 15 - 37 U/L [facility] DEPARTMENT OF PATHOLOGY AND GENOMIC MEDICINE Specimen Plasma specimen Performing Organization Address City/State/Zipcode Phone Number [facility] DEPARTMENT OF [facility] [place] [address] PATHOLOGY AND GENOMIC MEDICINE after 03/03/2017 Insurance Payer Benefit Subscriber ID Type Phone Address Plan / Group BCBS BCBS xxxxxxxxx PPO CHOICE PPO/FEDERA L EMPL PPO MEDICARE MEDICARE xxxxxxxxxx Medicare [place], [place] PART A AND B Advance Directives Patient has advance care planning documents on file. For more information, hilary null contact: Leobardo Forrest [address] [place] [address]
[2018-03-04] MEDS ORDERED: ALBUTEROL/IPRATROPIUM 3 ML NEB NEB PRN (20:30)
[2018-03-04 22:10] VITALS: BP 136/72
[2018-03-04 22:20] VITALS: BP 136/72
[2018-03-05] VITALS: BP 131/69
[2018-03-05] MEDS: METHYLPREDNISOLONE SOD SUCC 40 MG/ML VIAL IV SCH ×5 (00:31→23:58)
[2018-03-05 04:00] VITALS: BP 143/81
[2018-03-05] MEDS: AZITHROMYCIN 500MG/NS 250 ML 250 ML IV SCH (07:05)
[2018-03-05] MEDS: GUAIFENESIN/DEXTROMETHORPHAN LIQD 5 ML UDC NG SCH ×3 (07:05→22:21)
[2018-03-05 07:56] VITALS: BP 152/74
[2018-03-05] MEDS: FAMOTIDINE 20 MG TAB PO SCH ×2 (08:26→16:26)
[2018-03-05] MEDS: BENZONATATE 100 MG CAP PO SCH ×3 (08:27→22:21)
[2018-03-05] MEDS ORDERED: ALENDRONATE SOD70 MG PO (08:29)
[2018-03-05] MEDS ORDERED: ARICEPT5 MG PO (08:29)
[2018-03-05] MEDS ORDERED: ATORVASTATIN CA10 MG PO (08:29)
--- NOTE | 2018-03-05 08:32 | History and Physical ---
PRIMARY CARE PHYSICIAN: Unknown CHIEF COMPLAINT: Cough. HISTORY OF PRESENT ILLNESS: A 72-year-old woman found with cough and findings of acute bronchitis. Admitted for further evaluation and management. The patient is nonvocal at this time and providing no history. All history has been obtained from the records, which are quite limited. PAST MEDICAL HISTORY: Unknown. PAST SURGICAL HISTORY: Unknown. ALLERGIES: PER ELECTRONIC MEDICAL RECORD. FAMILY/SOCIAL HISTORY: Patient's history is unknown. MEDICATIONS: Per electronic medical record. REVIEW OF SYSTEMS: Unobtainable. PHYSICAL EXAMINATION VITAL SIGNS: Reviewed. GENERAL: A tired-appearing woman resting in bed. She has a blank stare and nonvocal. HEENT: Anicteric. CARDIOVASCULAR: Normal S1 and S2. LUNGS: She has reduced breath sounds. ABDOMEN: Soft, nontender and nondistended. EXTREMITIES: No edema. SKIN: Dry. PSYCHIATRIC: Flat affect. NEUROLOGIC: Awake. Tracks with her eyes, but nonvocal. Moves all extremities. LABS: Reviewed. MEDICATIONS: Reviewed. ASSESSMENT: This is a 72-year-old woman with: 1. Acute bronchitis: Will continue steroids and antibiotics. Use antitussive medications. Will also add loratadine for allergic rhinitis. 2. Cognitive disturbance. 3. Mutism. 4. Physical deconditioning. 5. Overweight state. 6. Behavioral changes. PLAN 1. Will continue azithromycin and steroids and antitussive medications. 2. Add loratadine for possible allergic rhinitis. 3. Physical therapy consultation. 4. Obtain CT of the brain to further evaluate. 5. Use SCD and Pepcid for prophylaxis. 6. Disposition. Follow up with . Job#: [id number] MA
[2018-03-05] MEDS: HYDRALAZINE HCL 25 MG TAB PO SCH ×3 (09:37→22:21)
[2018-03-05] MEDS: LORATADINE 10 MG TAB PO SCH (09:37)
[2018-03-05 11:21] LABS: BILIRUBIN,URINE NEGATIVE (NEGATIVE); CLARITY,URINE CLEAR (CLEAR); COLOR,URINE YELLOW (YELLOW); KETONES,URINE TRACE (NEGATIVE); LEUKOCYTE ESTERASE ,URINE NEGATIVE (NEGATIVE); NITRITE,URINE NEGATIVE (NEGATIVE); PROTEIN,URINE DIPSTICK NEGATIVE (NEGATIVE); URINE UROBILINOGEN 0.2 mg/dL (0.2 - 1)
[2018-03-05 11:36] VITALS: BP 124/58
[2018-03-05 11:39] LABS: BACTERIA,URINE RARE /HPF; EPITHELIAL CELLS,URINE RARE /LPF
[2018-03-05 11:40] LABS: AMORPHOUS SEDIMENT,URINE FEW (FEW); MUCUS,URINE FEW (RARE)
[2018-03-05 15:28] VITALS: BP 131/71
[2018-03-05 20:00] VITALS: BP 130/77
[2018-03-06] VITALS: BP 128/81
[2018-03-06 04:00] VITALS: BP 128/74
[2018-03-06] MEDS: AZITHROMYCIN 500MG/NS 250 ML 250 ML IV SCH (05:41)
[2018-03-06] MEDS: GUAIFENESIN/DEXTROMETHORPHAN LIQD 5 ML UDC NG SCH ×2 (05:41→16:24)
[2018-03-06] MEDS: METHYLPREDNISOLONE SOD SUCC 40 MG/ML VIAL IV SCH ×2 (05:41→12:34)
[2018-03-06] MEDS ORDERED: HYDRALAZINE HCL25 MG PO (07:11)
[2018-03-06] MEDS ORDERED: LORATADINE10 MG PO (07:11)
[2018-03-06] MEDS ORDERED: VENTOLIN HFA18 GM IH (07:11)
[2018-03-06] MEDS ORDERED: PREDNISONE20 MG PO (07:11)
[2018-03-06] MEDS ORDERED: FAMOTIDINE20 MG PO (07:11)
[2018-03-06] MEDS ORDERED: TESSALON PERLE100 MG PO (07:11)
[2018-03-06] MEDS ORDERED: Guaifenesin/Dextromethorphan NG (07:11)
[2018-03-06] MEDS ORDERED: ZITHROMAX500 MG PO (07:15)
[2018-03-06] MEDS: FAMOTIDINE 20 MG TAB PO SCH ×2 (07:18→16:24)
[2018-03-06 08:00] VITALS: BP 137/72
[2018-03-06 08:17] VITALS: BP 137/72
[2018-03-06] MEDS: BENZONATATE 100 MG CAP PO SCH ×2 (09:19→16:24)
[2018-03-06] MEDS: LORATADINE 10 MG TAB PO SCH (09:19)
[2018-03-06] MEDS: HYDRALAZINE HCL 25 MG TAB PO SCH ×2 (09:19→16:24)
[2018-03-06 12:32] VITALS: BP 123/83
--- NOTE | 2018-03-06 13:49 | Diagnostic Imaging Report ---
Exam: Brain MRI without IV contrast History: Altered mental status. Comparison studies: Brain MRI 06/28/2015. Technique: 3-D T1 with axial, coronal and sagittal reformats, axial DWI, axial T2 FLAIR, axial T2 and axial T2*GRE. Intravenous contrast: None Findings: Several pulse sequences are limited artifacts related to patient motion. Scalp: No abnormal signal. No masses. Bone marrow: Normal in signal intensity. Brain sulci: Moderately prominent. Ventricles: Severe compensatory dilatation with slightly greater dilatation in the left lateral ventricle. No hydrocephalus. Extra axial spaces: No mass, no fluid collection. Parenchyma: No mass, hemorrhage or acute ischemia. Moderate generalized volume loss with slightly greater volume loss in the bilateral frontal and temporal lobes. A few scattered T2 FLAIR hyperintense foci in the supratentorial white matter are nonspecific most compatible with chronic microvascular ischemic changes. There are mildly confluent T2 FLAIR hyperintense signal changes in the periventricular white matter. Suprasellar region: No abnormalities. Craniocervical junction: No abnormalities. The foramen magnum is patent. No Chiari malformations. Vessels: Normal flow-voids in the arteries and sinuses. Incidental findings: Inflammatory mucosal thickening with secretions in the left maxillary sinus and left sphenoid sinus. Small right maxillary sinus retention cyst. IMPRESSION: Exam limited by artifacts. In spite of limitations: 1. No acute intracranial abnormalities. 2. Moderate to severe generalized cerebral volume loss with disproportionate volume loss in the bilateral frontal and temporal lobes, degree which has slightly increased since 2016. 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 3. Mild chronic microvascular ischemic changes, not significantly changed since 2016. 4. Inflammatory changes in the paranasal sinuses, correlate for acute sinusitis. Signed by: Dr. Jorge Levine M.D. on 03/06/2018 1:46 PM
[2018-03-06 16:00] VITALS: BP 117/76
== END 2018-03-06 17:00 ==
LOC: ER 12:08 → ERHOLD 19:15 → IMCU 22:14
PROVIDERS: ADMIT Internal Medicine; ATTEND Internal Medicine
DX: J20.9 Acute bronchitis, unspecified (principal); E78.5 Hyperlipidemia, unspecified; Z82.49 Family history of ischemic heart disease and other diseases of the circulatory system; R47.01 Aphasia; G30.9 Alzheimer's disease, unspecified; R53.81 Other malaise; F02.81 Dementia in other diseases classified elsewhere, unspecified severity, with behavioral disturbance; E66.3 Overweight; Z68.28 Body mass index [BMI] 28.0-28.9, adult; J45.909 Unspecified asthma, uncomplicated
CPT/HCPCS: 36415; 70551; 71046; 80053; 81001; 85025; 94640; 97116; 97139; 97162; 99284; G0378 ×3; G8978; G8979; J0456 ×2; J2920 ×2; J2930

== ENCOUNTER 2018-03-10 16:01 | Inpatient (IN) | payer MEDICARE, BC ==
[~2018-03-10] VITALS: Ht 157.5 cm; Wt 77.1 kg
[~2018-03-10 16:01] MED LIST: ALENDRONATE SOD70 MG PO; ARICEPT5 MG PO; ATORVASTATIN CA10 MG PO; FAMOTIDINE20 MG PO; Guaifenesin/Dextromethorphan NG; HYDRALAZINE HCL25 MG PO; LORATADINE10 MG PO; PREDNISONE20 MG PO; TESSALON PERLE100 MG PO; VENTOLIN HFA18 GM IH; ZITHROMAX500 MG PO
--- OUTSIDE RECORDS SUMMARY | 2018-03-10 16:05 | XMS REPORT | Clinical Summary ---
Author Author [facility] Organization [facility] Address Unknown Phone Unavailable Care Team Providers [facility] [place] Superintendent Name Role Phone Iglesia Owens MD PCP [...] Emergency General Internal Medicine - 05/14/2017 after 03/09/2017 Social History Date Tobacco Use Types Packs/Day [...] Taken Vital Sign Reading 05/14/2017 11:07 AM STOCK BLENDER Blood Pressure 99/57 05/14/2017 11:07 AM STOCK BLENDER Pulse 91 05/14/2017 11:07 AM STOCK BLENDER Temperature 36.7 C (98.1 F) 05/14/2017 11:07 AM STOCK BLENDER Respiratory Rate 18 05/14/2017 11:07 AM STOCK BLENDER Oxygen Saturation 96% - Inhaled Oxygen - Concentration 05/12/2017 2:33 PM STOCK BLENDER Weight 88.5 kg (195 lb 1.7 oz) 05/12/2017 2:33 PM STOCK BLENDER Height 167.6 cm (5' 6") 05/12/2017 2:33 PM STOCK BLENDER Body Mass Index 31.49 Plan of Treatment Health Maintenance Due Date Last Done Comments BREAST CANCER SCREENING 11/19/1997 COLON CANCER SCREENING 11/19/1997 SHINGRIX VACCINE (1 of 2) 11/19/1997 ZOSTER VACCINE 2007 PNEUMOCOCCAL 11/19/2012 POLYSACCHARIDE VACCINE AGE 65 AND OVER PNEUMOCOCCAL-13 11/19/2012 INFLUENZA VACCINE 11/05/2017 Procedures Comments Procedure Name Priority Date/Time Associated Diagnosis ZZESTIMATED GFR STAT 05/14/2017 9:31 AM STOCK BLENDER BASIC METABOLIC PANEL STAT 05/14/2017 9:31 AM STOCK BLENDER ECHOCARDIOGRAM 2D Routine 05/13/2017 COMPLETE W MMODE SPECTRAL 8:19 AM STOCK BLENDER COLOR DOPPLER ([id number]) POC GLUCOSE Routine 05/13/2017 7:30 AM STOCK BLENDER ZZESTIMATED GFR Routine 05/13/2017 5:10 AM STOCK BLENDER TROPONIN Routine 05/13/2017 5:10 AM STOCK BLENDER BASIC METABOLIC PANEL Routine 05/13/2017 5:10 AM STOCK BLENDER HC COMPLETE BLD COUNT Routine 05/13/2017 W/AUTO DIFF 5:10 AM STOCK BLENDER ZZESTIMATED GFR Timed 05/13/2017 1:50 AM STOCK BLENDER THYROID STIMULATING Timed 05/13/2017 HORMONE 1:50 AM STOCK BLENDER T3, FREE Timed 05/13/2017 1:50 AM STOCK BLENDER PROTHROMBIN TIME WITH INR Timed 05/13/2017 1:50 AM STOCK BLENDER PARTIAL THROMBOPLASTIN Timed 05/13/2017 TIME (PTT) 1:50 AM STOCK BLENDER MAGNESIUM LEVEL Timed 05/13/2017 1:50 AM STOCK BLENDER LIPID PANEL Timed 05/13/2017 1:50 AM STOCK BLENDER HEMOGLOBIN A1C Timed 05/13/2017 1:50 AM STOCK BLENDER COMPREHENSIVE METABOLIC Timed 05/13/2017 PANEL 1:50 AM STOCK BLENDER HC COMPLETE BLD COUNT Timed 05/13/2017 W/AUTO DIFF 1:50 AM STOCK BLENDER B NATRIURETIC PEPTIDE Timed 05/13/2017 1:50 AM STOCK BLENDER TROPONIN Timed 05/13/2017 1:50 AM STOCK BLENDER ECG 12-LEAD Routine 05/12/2017 9:15 PM STOCK BLENDER TROPONIN Timed 05/12/2017 8:49 PM STOCK BLENDER TROPONIN Timed 05/12/2017 7:22 PM STOCK BLENDER XR CHEST 1 VW PORTABLE STAT 05/12/2017 4:32 PM STOCK BLENDER ECG 12-LEAD Routine 05/12/2017 4:17 PM STOCK BLENDER TROPONIN Timed 05/12/2017 3:20 PM STOCK BLENDER ECG 12-LEAD STAT 05/12/2017 11:28 AM STOCK BLENDER ZZESTIMATED GFR STAT 05/12/2017 11:07 AM STOCK BLENDER B NATRIURETIC PEPTIDE STAT 05/12/2017 11:07 AM STOCK BLENDER TROPONIN STAT 05/12/2017 11:07 AM STOCK BLENDER HEPATIC FUNCTION PANEL STAT 05/12/2017 11:07 AM STOCK BLENDER BASIC METABOLIC PANEL STAT 05/12/2017 11:07 AM STOCK BLENDER PARTIAL THROMBOPLASTIN STAT 05/12/2017 TIME (PTT) 11:07 AM STOCK BLENDER PROTHROMBIN TIME WITH INR STAT 05/12/2017 11:07 AM STOCK BLENDER HC COMPLETE BLD COUNT STAT 05/12/2017 W/AUTO DIFF 11:07 AM STOCK BLENDER after 03/09/2017 Results * Estimated GFR (05/14/2017 9:31 AM STOCK BLENDER) Only the most recent of 4 results within the time period is included. GFR Non Af Amer 62 mL/min/1.73 m2 [facility] AND [facility] GFR Af Amer 75 mL/min/1.73 m2 [facility] Comment: PATHOLOGY AND Chronic kidney [...] Americans. Specimen Plasma specimen Performing Organization Address [facility] Phone Number [place] [phone] [place] [phone] [place] [address] * Basic metabolic panel (05/14/2017 9:31 AM STOCK BLENDER) Only the most recent of 3 results within the time period is included. Sodium 139 135 - 150 mEq/L [facility]OLOGY AND [facility] Potassium 3.3 (L) 3.5 - 5.0 mEq/L [facility]Y AND [facility] Chloride 105 100 - 109 mEq/L [facility]OLOGY AND [facility] CO2 23 (L) 24 - 32 mmol/L [facility]OLOGY AND [facility] MEDICINE Anion gap 11 7 - 15 mEq/L [facility] Comment: PATHOLOGY AND Starting from July [facility] , anion gap calculation no longer incorporates potassium. Please note the change. BUN 12 7 - 18 mg/dL [facility]OLOGY AND [facility] Creatinine 0.9 0.8 - 1.5 mg/dL [facility]OLOGY AND [facility] Glucose 179 (H) 65 - 100 mg/dL [facility] PATHOLOGY AND Trove MEDICINE Calcium 8.4 (L) 8.6 - 10.7 mg/dL [facility] PATH[facility]Y AND [facility] Specimen Plasma specimen Performing Organization Address City/[facility] Hospitalcode Phone Number [place] [address] [place] [address] PATHOLOGY AND GENOMIC MEDICINE * Echocardiogram complete w contrast and 3D if needed (05/13/2017 8:19 AM STOCK BLENDER) Velocity Ratio (V1/V2) 0.91 m/s [facility] [...] left ventricular diastolic filling. Performing Organization Address City/[facility]/Zipcode Phone Number [place] [address] [place] [address] * POC glucose (05/13/2017 7:30 AM STOCK BLENDER) POC glucose 87 65 - 100 mg/dL [facility] Comment: PATHOLOGY AND Meter ID: [id number] GENOMIC MEDICINE [employer] Manager: Ashley Ordaz Performing Organization Address City/State/Zipcode Phone Number [facility] [address] [place], [place] [address] [place] [address] PATHOLOGY AND GENOMIC MEDICINE * Troponin (05/13/2017 5:10 AM STOCK BLENDER) Only the most recent of 6 results within the time period is included. Troponin <0.01 0.00 - 0.60 ng/mL [facility] Comment: PATHOLOGY AND 0.11 - 1.49 GENOMIC MEDICINE ng/mlMay indicate increased risk of acute coronary syndrome. >=1.5 ng/ml Consistent with acute myocardial infarction. The diagnostic value of a single normal or non-diagnostic result is questionable.Serial samples at 2-6 hour intervals are required to rule out acute myocardial injury. Specimen Plasma specimen Performing Organization Address City/State/Zipcode Phone Number [facility] [address] [place] [address] PATHOLOGY AND GENOMIC MEDICINE * CBC with platelet and differential (05/13/2017 5:10 AM STOCK BLENDER) Only the most recent of 3 results within the time period is included. WBC 6.7 4.2 - 11.0 k/uL [facility]OLOGY AND GENOMIC MEDICINE RBC 4.57 4.04 - 5.86 m/uL [facility]OLOGY AND GENOMIC MEDICINE HGB 12.8 11.5 - 15.3 g/dL [facility]OLOGY AND GENOMIC MEDICINE HCT 39.3 34.0 - 45.0 % [facility] PATHOLOGY AND GENOMIC MEDICINE MCV 86.0 80.0 - 98.0 fL [facility]OLOGY AND GENOMIC MEDICINE MCH 28.0 27.0 - 34.0 pg [facility]OLOGY AND GENOMIC MEDICINE MCHC 32.6 31.5 - 36.5 g/dL [facility]OLOGY AND GENOMIC MEDICINE RDW - SD 39.8 37.0 - 51.0 fL [facility]OLOGY AND GENOMIC MEDICINE MPV 11.4 (H) 7.4 - 10.4 fL [facility]OLOGY AND GENOMIC MEDICINE Platelet count 303 150 - 400 k/uL [facility]OLOGY AND GENOMIC MEDICINE Nucleated RBC 0.00 /100 WBC [facility] PATHOLOGY AND GENOMIC MEDICINE Neutrophils 49.8 36.0 - 66.0 % [facility]OLOGY AND GENOMIC MEDICINE Lymphocytes 33.6 24.0 - 44.0 % [facility]OLOGY AND GENOMIC MEDICINE Monocytes 8.5 (H) 0.0 - 6.0 % [facility]OLOGY AND GENOMIC MEDICINE Eosinophils 6.5 (H) 0.0 - 6.0 % [facility]OLOGY AND GENOMIC MEDICINE Basophils 1.3 (H) 0.0 - 1.2 % [facility] PATHOLOGY AND GENOMIC MEDICINE Immature granulocytes 0.3 0.0 - 1.0 % [facility] PATHOLOGY AND [facility] MEDICINE Specimen Blood Performing Organization Address [facility] [place] [address] PATHOLOGY AND Trove MEDICINE * Partial thromboplastin time, activated (05/13/2017 1:50 AM STOCK BLENDER) Only the most recent of 2 results within the time period is included. PTT 30.9 23.0 - 36.0 sec [facility] Comment: PATHOLOGY AND PTT therapeutic range for GENOMIC MEDICINE unfractionated heparin is 61.0-112.0 seconds which corresponds to Anti-Xa 0.3-0.7 U/ml. Note:Change in Panic Value The PTT Panic Value is changing from 110 sec. to 100 sec. due to new instrumentation and reagents. Correlation studies have been performed to validate this result. Specimen Blood Performing Organization Address [facility] [place] [address] PATHOLOGY AND Trove MEDICINE * Prothrombin time with INR (05/13/2017 1:50 AM STOCK BLENDER) Only the most recent of 2 results within the time period is included. Prothrombin time 13.3 12.0 - 15.0 sec [facility] PATHOLOGY AND Tro[facility] MEDICINE INR 1.00 0.92 - 1.12 [facility] Comment: PATHOLOGY AND For patients on anticoagulant GENOMIC MEDICINE therapy, reference ranges below: Indication: INR Value Treatment of Venous Thrombosis, 2.0-3.0 pulmonary emboli, or prophylaxis of a venous thrombosis, or systemic emboli. High dose, high risk patients 3.0-4.5 with mechanical valves. NOTE:INR values over 3.0 are sometimes associated with gastrointestinal hemorrhage, especially values over 4.0. Specimen Blood Performing Organization Address [facility] [place] [address] PATHOLOGY AND Trove MEDICINE * T3, free (05/13/2017 1:50 AM STOCK BLENDER) T3, free 2.49 2.18 - 3.98 pmol/L [facility]OLOGY AND [facility] MEDICINE Specimen Plasma specimen Performing Organization Address City/[facility] [place] [address] PATHOLOGY AND Trove MEDICINE * Thyroid stimulating hormone (05/13/2017 1:50 AM STOCK BLENDER) TSH 1.80 0.38 - 4.82 uIU/mL [facility]OLOGY AND GENOMIC MEDICINE Specimen Plasma specimen Performing Organization Address City/[facility] [place] [address] PATHOLOGY AND [facility] MEDICINE * B natriuretic peptide (05/13/2017 1:50 AM STOCK BLENDER) Only the most recent of 2 results within the time period is included. BNP 39 0 - 100 pg/mL [facility] PATHOLOGY AND GENOMIC MEDICINE Specimen Blood Performing Organization Address [facility] [place] [address] PATHOLOGY AND Tro[facility] MEDICINE * Magnesium level (05/13/2017 1:50 AM STOCK BLENDER) Magnesium 2.00 1.60 - 2.40 mg/dL [facility] PATHOLOGY AND GENOMIC MEDICINE Specimen Plasma specimen Performing Organization Address [facility] [place] [address] PATHOLOGY AND [facility] MEDICINE * Hemoglobin A1c (05/13/2017 1:50 AM STOCK BLENDER) Hemoglobin A1C 5.9 4.0 - 6.0 % [facility] Comment: PATHOLOGY AND GENOMIC MEDICINE Less than 6% - Goal of therapy for Type II Diabetes Less than 7%-Goal of therapy for Type I Diabetes Less than 8%-Accepta ble control for Type I or Type II Diabetes Greater than 8%-Unacceptabl e control; action indicated. ([id number]) Specimen Blood Performing Organization Address [facility] [place] [address] PATHOLOGY AND Trove MEDICINE * Lipid panel (05/13/2017 1:50 AM STOCK BLENDER) Cholesterol 202 (H) 120 - 200 mg/dL [facility] PATHOLOGY AND GENOMIC MEDICINE Triglycerides 124 50 - 150 mg/dL [facility] PATHOLOGY AND GENOMIC MEDICINE HDL cholesterol 34 (L) 40 - 60 mg/dL [facility] PATHOLOGY AND GENOMIC MEDICINE LDL cholesterol 160Comment: Result obtained by mg/dL [facility] direct LDL measurement PATHOLOGY AND GENOMIC MEDICINE Specimen Plasma specimen Performing Organization Address City/[facility]code Phone Number [facility] [address] [place] [place] [address] PATHOLOGY AND GENOMIC MEDICINE * Comprehensive metabolic panel (05/13/2017 1:50 AM STOCK BLENDER) Sodium 139 135 - 150 mEq/L [facility] PATHOLOGY AND GENOMIC MEDICINE Potassium 2.9 (LL) 3.5 - 5.0 mEq/L [facility] Comment: PATHOLOGY AND Results called to and read [facility] back by Crys Ga/OBS at 05/13/201702:42by ln. Chloride 104 100 - 109 mEq/L [facility] PATHOLOGY AND GENOMIC MEDICINE CO2 26 24 - 32 mmol/L [facility] PATHOLOGY AND GENOMIC MEDICINE Anion gap 9 7 - 15 mEq/L [facility] Comment: PATHOLOGY AND Starting from July [facility] , anion gap calculation no longer incorporates potassium. Please note the change. BUN 16 7 - 18 mg/dL [facility] PATHOLOGY AND GENOMIC MEDICINE Creatinine 0.6 (L) 0.8 - 1.5 mg/dL [facility] PATHOLOGY AND GENOMIC MEDICINE Glucose 86 65 - 100 mg/dL [facility] PATHOLOGY AND GENOMIC MEDICINE Calcium 8.3 (L) 8.6 - 10.7 mg/dL [facility] PATHOLOGY AND GENOMIC MEDICINE Protein 6.6 6.3 - 8.2 g/dL [facility] PATHOLOGY AND GENOMIC MEDICINE Albumin 3.1 (L) 3.2 - 5.0 g/dL [facility] PATHOLOGY AND GENOMIC MEDICINE A/G ratio 0.9 0.7 - 3.8 [facility]OLOGY AND GENOMIC MEDICINE Alkaline phosphatase 77 30 - 120 U/L [facility] PATHOLOGY AND GENOMIC MEDICINE AST 10 (L) 15 - 37 U/L [facility] PATHOLOGY AND GENOMIC MEDICINE ALT 14 (L) 30 - 65 U/L [facility] PATHOLOGY AND GENOMIC MEDICINE Total bilirubin 0.5 0.2 - 1.2 mg/dL [facility]OLOGY AND GENOMIC MEDICINE Specimen Plasma specimen Performing Organization Address City/[facility]/Zipcode Phone Number [facility] [address] [place] [place] [address] PATHOLOGY AND GENOMIC MEDICINE * ECG 12 lead (05/12/2017 9:15 PM STOCK BLENDER) Only the most recent of 3 results within the time period is included. Ventricular rate 62 [facility] Atrial rate 62 [facility] [place] interval 130 [facility] QRSD interval 86 [facility] QT interval 426 [facility] QTC interval 432 [facility] P axis 1 53 [facility] QRS axis 1 53 [facility] MUSE T wave axis 59 [facility] MUSE EKG impression Normal sinus rhythm-Normal [facility] MUSE ECG-In automated comparison with ECG of 12-MAY-2017 16:17,-No significant change was found- Performing Organization Address [facility] Hospitalcowv Phone Number [facility] MUSE [address] [place] [address] * XR Chest 1 Vw Portable (05/12/2017 4:32 PM STOCK BLENDER) Narrative Performed At EXAMINATION:XR CHEST 1 VW PORTABLE [facility] CLINICAL HISTORY:Chest Pain COMPARISON:None IMPRESSION: Unremarkable single view chest The lungs are clear. The heart is not enlarged. Mild vascular ectasia of the aorta is present The bony structures are within normal limits. [id number] Procedure Note Hm Interface, Radiology Results Incoming - 05/12/2017 4:38 PM STOCK BLENDER EXAMINATION: XR CHEST 1 VW PORTABLE CLINICAL HISTORY: Chest Pain COMPARISON: None IMPRESSION: Unremarkable single view chest The lungs are clear. The heart is not enlarged. Mild vascular ectasia of the aorta is present The bony structures are within normal limits. [id number] Performing Organization Address [facility] Phone Number [facility] [address] [place] [address] * Hepatic function panel (05/12/2017 11:07 AM STOCK BLENDER) Albumin 3.3 3.2 - 5.0 g/dL [facility]Y AND GENOMIC MEDICINE Total bilirubin 0.5 0.2 - 1.2 mg/dL [facility] PATHOLOGY AND GENOMIC MEDICINE Bilirubin direct 0.1 0.0 - 0.4 mg/dL [facility] PATHOLOGY AND GENOMIC MEDICINE Alkaline phosphatase 84 30 - 120 U/L [facility] PATHOLOGY AND GENOMIC MEDICINE Protein 7.0 6.3 - 8.2 g/dL [facility] PATHOLOGY AND GENOMIC MEDICINE ALT 13 (L) 30 - 65 U/L [facility] OF PATHOLOGY AND GENOMIC MEDICINE AST 7 (L) 15 - 37 U/L [facility] PATHOLOGY AND GENOMIC MEDICINE Specimen Plasma specimen Performing Organization Address City/State/Zipcode Phone Number [facility] [place] [address] PATHOLOGY AND GENOMIC MEDICINE after 03/09/2017 Insurance Payer Benefit Subscriber ID Type Phone Address Plan / Group BCBS BCBS xxxxxxxxx PPO CHOICE PPO/[employer] PPO MEDICARE MEDICARE xxxxxxxxxx Medicare [place] PART A AND B Advance Directives Patient has advance care planning documents on file. For more information, hilary null contact: Leobardo Forrest [address] [place] [address]
[2018-03-10] MEDS ORDERED: AZITHROMYCIN 500MG/SOD CHL 0.9% 250ML BAG IV SCH (16:45)
[2018-03-10] MEDS ORDERED: AZITHROMYCIN 500MG/NS 250 ML 250 ML IV SCH (17:00)
--- OUTSIDE RECORDS SUMMARY | 2018-03-10 17:07 | XMS REPORT | Clinical Summary ---
Author Author [employer] Organization [employer] Address Unknown Phone Unavailable Care Team Providers Care Real Estate Account Executive Name Role Phone Iglesia Owens MD PCP [...] Taken Vital Sign Reading 05/14/2017 11:07 AM CLIP WRAPPER Blood Pressure 99/57 05/14/2017 11:07 AM CLIP WRAPPER Pulse 91 05/14/2017 11:07 AM CLIP WRAPPER Temperature 36.7 C (98.1 F) 05/14/2017 11:07 AM CLIP WRAPPER Respiratory Rate 18 05/14/2017 11:07 AM CLIP WRAPPER Oxygen Saturation 96% - Inhaled Oxygen - Concentration 05/12/2017 2:33 PM CLIP WRAPPER Weight 88.5 kg (195 lb 1.7 oz) 05/12/2017 2:33 PM CLIP WRAPPER Height 167.6 cm (5' 6") 05/12/2017 2:33 PM CLIP WRAPPER Body Mass Index 31.49 Plan of Treatment Health Maintenance Due Date Last Done Comments BREAST CANCER SCREENING 11/19/1997 COLON CANCER SCREENING 11/19/1997 SHINGRIX VACCINE (1 of 2) 11/19/1997 ZOSTER VACCINE 2007 PNEUMOCOCCAL 11/19/2012 POLYSACCHARIDE VACCINE AGE 65 AND OVER PNEUMOCOCCAL-13 11/19/2012 INFLUENZA VACCINE 11/05/2017 Procedures Comments Procedure Name Priority Date/Time Associated Diagnosis ZZESTIMATED GFR STAT 05/14/2017 9:31 AM CLIP WRAPPER BASIC METABOLIC PANEL STAT 05/14/2017 9:31 AM CLIP WRAPPER ECHOCARDIOGRAM 2D Routine 05/13/2017 COMPLETE W MMODE SPECTRAL 8:19 AM CLIP WRAPPER COLOR DOPPLER ([id number]) POC GLUCOSE Routine 05/13/2017 7:30 AM CLIP WRAPPER ZZESTIMATED GFR Routine 05/13/2017 5:10 AM CLIP WRAPPER TROPONIN Routine 05/13/2017 5:10 AM CLIP WRAPPER BASIC METABOLIC PANEL Routine 05/13/2017 5:10 AM CLIP WRAPPER HC COMPLETE BLD COUNT Routine 05/13/2017 W/AUTO DIFF 5:10 AM CLIP WRAPPER ZZESTIMATED GFR Timed 05/13/2017 1:50 AM CLIP WRAPPER THYROID STIMULATING Timed 05/13/2017 HORMONE 1:50 AM CLIP WRAPPER T3, FREE Timed 05/13/2017 1:50 AM CLIP WRAPPER PROTHROMBIN TIME WITH INR Timed 05/13/2017 1:50 AM CLIP WRAPPER PARTIAL THROMBOPLASTIN Timed 05/13/2017 TIME (PTT) 1:50 AM CLIP WRAPPER MAGNESIUM LEVEL Timed 05/13/2017 1:50 AM CLIP WRAPPER LIPID PANEL Timed 05/13/2017 1:50 AM CLIP WRAPPER HEMOGLOBIN A1C Timed 05/13/2017 1:50 AM CLIP WRAPPER COMPREHENSIVE METABOLIC Timed 05/13/2017 PANEL 1:50 AM CLIP WRAPPER HC COMPLETE BLD COUNT Timed 05/13/2017 W/AUTO DIFF 1:50 AM CLIP WRAPPER B NATRIURETIC PEPTIDE Timed 05/13/2017 1:50 AM CLIP WRAPPER TROPONIN Timed 05/13/2017 1:50 AM CLIP WRAPPER ECG 12-LEAD Routine 05/12/2017 9:15 PM CLIP WRAPPER TROPONIN Timed 05/12/2017 8:49 PM CLIP WRAPPER TROPONIN Timed 05/12/2017 7:22 PM CLIP WRAPPER XR CHEST 1 VW PORTABLE STAT 05/12/2017 4:32 PM CLIP WRAPPER ECG 12-LEAD Routine 05/12/2017 4:17 PM CLIP WRAPPER TROPONIN Timed 05/12/2017 3:20 PM CLIP WRAPPER ECG 12-LEAD STAT 05/12/2017 11:28 AM CLIP WRAPPER ZZESTIMATED GFR STAT 05/12/2017 11:07 AM CLIP WRAPPER B NATRIURETIC PEPTIDE STAT 05/12/2017 11:07 AM CLIP WRAPPER TROPONIN STAT 05/12/2017 11:07 AM CLIP WRAPPER HEPATIC FUNCTION PANEL STAT 05/12/2017 11:07 AM CLIP WRAPPER BASIC METABOLIC PANEL STAT 05/12/2017 11:07 AM CLIP WRAPPER PARTIAL THROMBOPLASTIN STAT 05/12/2017 TIME (PTT) 11:07 AM CLIP WRAPPER PROTHROMBIN TIME WITH INR STAT 05/12/2017 11:07 AM CLIP WRAPPER HC COMPLETE BLD COUNT STAT 05/12/2017 W/AUTO DIFF 11:07 AM CLIP WRAPPER after 03/09/2017 Results * Estimated GFR (05/14/2017 9:31 AM CLIP WRAPPER) Only the most recent of 4 results within the time period is included. GFR Non Af Amer 62 mL/min/1.73 m2 [facility]OLOGY AND [facility] [employer] [facility] GFR Af Amer 75 mL/min/1.73 m2 [facility] OF Comment: PATHOLOGY AND Chronic kidney [...] Americans. Specimen Plasma specimen Performing Organization Address [facility] Unit[facility] Phone Number [place] [phone] [place] [phone] [place] [address] * Basic metabolic panel (05/14/2017 9:31 AM CLIP WRAPPER) Only the most recent of 3 results within the time period is included. Sodium 139 135 - 150 mEq/L [facility]OLOGY AND [facility] [employer] [facility] Potassium 3.3 (L) 3.5 - 5.0 mEq/L [facility] PATHOLOGY AND [employer] [facility] Chloride 105 100 - 109 mEq/L [facility] PATHOLOGY AND [employer] [facility] CO2 23 (L) 24 - 32 mmol/L [facility] PATHOLOGY AND [facility] [employer] MEDICINE Anion gap 11 7 - 15 mEq/L [facility] Comment: PATHOLOGY AND Starting from July [facility] , anion gap calculation no longer incorporates potassium. Please note the change. BUN 12 7 - 18 mg/dL [facility] PATHOLOGY AND [employer] [facility] Creatinine 0.9 0.8 - 1.5 mg/dL [facility]OLOGY AND [facility] [employer] [facility] Glucose 179 (H) 65 - 100 mg/dL [facility] PATHOLOGY AND [employer] [facility] MEDICINE Calcium 8.4 (L) 8.6 - 10.7 mg/dL [facility] PATHOLOGY AND [facility] [employer] [facility] Specimen Plasma specimen Performing Organization Address City/[facility] Unitcode Phone Number [place] [address] [place] [address] PATHOLOGY AND GENOMIC MEDICINE * Echocardiogram complete w contrast and 3D if needed (05/13/2017 8:19 AM CLIP WRAPPER) Velocity Ratio (V1/V2) 0.91 m/s [facility] [...] left ventricular diastolic filling. Performing Organization Address City/[facility]/Zipcode Phone Number [place] [address] [place] [address] * POC glucose (05/13/2017 7:30 AM CLIP WRAPPER) POC glucose 87 65 - 100 mg/dL [facility] Comment: PATHOLOGY AND Meter ID: [id number] GENOMIC MEDICINE Lobby Concierge: Ashley Ordaz Performing Organization Address City/State/Zipcode Phone Number [facility] OF [address] [place], [place] [address] [address] PATHOLOGY AND GENOMIC MEDICINE * Troponin (05/13/2017 5:10 AM CLIP WRAPPER) Only the most recent of 6 results within the time period is included. Troponin <0.01 0.00 - 0.60 ng/mL [facility] Comment: PATHOLOGY AND 0.11 - [...] [facility] [address] [address] PATHOLOGY AND GENOMIC MEDICINE * CBC with platelet and differential (05/13/2017 5:10 AM CLIP WRAPPER) Only the most recent of 3 results within the time period is included. WBC 6.7 4.2 - 11.0 k/uL [facility] PATHOLOGY AND GENOMIC MEDICINE RBC 4.57 4.04 - 5.86 m/uL [facility]OLOGY AND GENOMIC MEDICINE HGB 12.8 11.5 - 15.3 g/dL [facility]OLOGY AND GENOMIC MEDICINE HCT 39.3 34.0 - 45.0 % [facility] PATHOLOGY AND GENOMIC MEDICINE MCV 86.0 80.0 - 98.0 fL [facility]OLOGY AND GENOMIC MEDICINE MCH 28.0 27.0 - 34.0 pg [facility] PATHOLOGY AND GENOMIC MEDICINE MCHC 32.6 31.5 - 36.5 g/dL [facility] PATHOLOGY AND GENOMIC MEDICINE RDW - SD 39.8 37.0 - 51.0 fL [facility]OLOGY AND GENOMIC MEDICINE MPV 11.4 (H) 7.4 - 10.4 fL [facility]OLOGY AND GENOMIC MEDICINE Platelet count 303 150 - 400 k/uL [facility] PATHOLOGY AND GENOMIC MEDICINE Nucleated RBC 0.00 /100 WBC [facility] PATHOLOGY AND GENOMIC MEDICINE Neutrophils 49.8 36.0 - 66.0 % [facility] PATHOLOGY AND GENOMIC MEDICINE Lymphocytes 33.6 24.0 - 44.0 % [facility] PATHOLOGY AND GENOMIC MEDICINE Monocytes 8.5 (H) 0.0 - 6.0 % [facility] PATHOLOGY AND GENOMIC MEDICINE Eosinophils 6.5 (H) 0.0 - 6.0 % [facility] PATHOLOGY AND GENOMIC MEDICINE Basophils 1.3 (H) 0.0 - 1.2 % [facility] PATHOLOGY AND GENOMIC MEDICINE Immature granulocytes 0.3 0.0 - 1.0 % [facility] OF PATHOLOGY AND [facility] [employer] MEDICINE Specimen Blood Performing Organization Address [facility] [place] [address] PATHOLOGY AND [facility] MEDICINE * Partial thromboplastin time, activated (05/13/2017 1:50 AM CLIP WRAPPER) Only the most recent of 2 results within the time period is included. PTT 30.9 23.0 - 36.0 sec [facility] Comment: PATHOLOGY AND PTT therapeutic range for GENOMIC MEDICINE unfractionated heparin is 61.0-112.0 seconds which corresponds to Anti-Xa 0.3-0.7 U/ml. Note:Change in Panic Value The PTT Panic Value is changing from 110 sec. to 100 sec. due to new instrumentation and reagents. Correlation studies have been performed to validate this result. Specimen Blood Performing Organization Address [facility] [place] [address] PATHOLOGY AND [facility] MEDICINE * Prothrombin time with INR (05/13/2017 1:50 AM CLIP WRAPPER) Only the most recent of 2 results within the time period is included. Prothrombin time 13.3 12.0 - 15.0 sec [facility] PATHOLOGY AND [facility] [employer] [facility] MEDICINE INR 1.00 0.92 - 1.12 [facility] Comment: PATHOLOGY AND For patients on anticoagulant GENOMIC MEDICINE therapy, reference ranges below: Indication: INR Value Treatment of Venous Thrombosis, 2.0-3.0 pulmonary emboli, or prophylaxis of a venous thrombosis, or systemic emboli. High dose, high risk patients 3.0-4.5 with mechanical valves. NOTE:INR values over 3.0 are sometimes associated with gastrointestinal hemorrhage, especially values over 4.0. Specimen Blood Performing Organization Address [facility] [place] [address] PATHOLOGY AND [facility] [employer] [facility] MEDICINE * T3, free (05/13/2017 1:50 AM CLIP WRAPPER) T3, free 2.49 2.18 - 3.98 pmol/L [facility] PATHOLOGY AND [facility] [employer] [facility] MEDICINE Specimen Plasma specimen Performing Organization Address City/[facility] [place] [address] PATHOLOGY AND [facility] [employer] [facility] MEDICINE * Thyroid stimulating hormone (05/13/2017 1:50 AM CLIP WRAPPER) TSH 1.80 0.38 - 4.82 uIU/mL [facility] PATHOLOGY AND GENOMIC MEDICINE Specimen Plasma specimen Performing Organization Address City/[facility] [place] [address] PATHOLOGY AND [facility] [employer] [facility] MEDICINE * B natriuretic peptide (05/13/2017 1:50 AM CLIP WRAPPER) Only the most recent of 2 results within the time period is included. BNP 39 0 - 100 pg/mL [facility] OF PATHOLOGY AND GENOMIC MEDICINE Specimen Blood Performing Organization Address [facility] [place] [address] PATHOLOGY AND [facility] [employer] [facility] MEDICINE * Magnesium level (05/13/2017 1:50 AM CLIP WRAPPER) Magnesium 2.00 1.60 - 2.40 mg/dL [facility] PATHOLOGY AND GENOMIC MEDICINE Specimen Plasma specimen Performing Organization Address [facility] [place] [address] PATHOLOGY AND [facility] [employer] [facility] MEDICINE * Hemoglobin A1c (05/13/2017 1:50 AM CLIP WRAPPER) Hemoglobin A1C 5.9 4.0 - 6.0 % [facility] Comment: PATHOLOGY AND GENOMIC MEDICINE Less than 6% - Goal of therapy for Type II Diabetes Less than 7%-Goal of therapy for Type I Diabetes Less than 8%-Accepta ble control for Type I or Type II Diabetes Greater than 8%-Unacceptabl e control; action indicated. ([id number]) Specimen Blood Performing Organization Address [facility] [place] [address] PATHOLOGY AND [facility] MEDICINE * Lipid panel (05/13/2017 1:50 AM CLIP WRAPPER) Cholesterol 202 (H) 120 - 200 mg/dL [facility] PATHOLOGY AND GENOMIC MEDICINE Triglycerides 124 50 - 150 mg/dL [facility] PATHOLOGY AND GENOMIC MEDICINE HDL cholesterol 34 (L) 40 - 60 mg/dL [facility] PATHOLOGY AND GENOMIC MEDICINE LDL cholesterol 160Comment: Result obtained by mg/dL [facility] direct LDL measurement PATHOLOGY AND GENOMIC MEDICINE Specimen Plasma specimen Performing Organization Address City/[facility] Phone Number [facility] [address] [place] [address] PATHOLOGY AND GENOMIC MEDICINE * Comprehensive metabolic panel (05/13/2017 1:50 AM CLIP WRAPPER) Sodium 139 135 - 150 mEq/L [facility] PATHOLOGY AND GENOMIC MEDICINE Potassium 2.9 (LL) 3.5 - 5.0 mEq/L [facility] Comment: PATHOLOGY AND Results called to and read [facility] back by Crys Ga/OBS at 05/13/201702:42by ln. Chloride 104 100 - 109 mEq/L [facility] OF PATHOLOGY AND GENOMIC MEDICINE CO2 26 24 - 32 mmol/L [facility] PATHOLOGY AND GENOMIC MEDICINE Anion gap 9 7 - 15 mEq/L [facility] Comment: PATHOLOGY AND Starting from July [facility] , anion gap calculation no longer incorporates potassium. Please note the change. BUN 16 7 - 18 mg/dL [facility] PATHOLOGY AND GENOMIC MEDICINE Creatinine 0.6 (L) 0.8 - 1.5 mg/dL [facility] PATHOLOGY AND GENOMIC MEDICINE Glucose 86 65 - 100 mg/dL [facility] OF PATHOLOGY AND GENOMIC MEDICINE Calcium 8.3 (L) 8.6 - 10.7 mg/dL [facility] OF PATHOLOGY AND GENOMIC MEDICINE Protein 6.6 6.3 - 8.2 g/dL [facility] PATHOLOGY AND GENOMIC MEDICINE Albumin 3.1 (L) 3.2 - 5.0 g/dL [facility] PATHOLOGY AND GENOMIC MEDICINE A/G ratio 0.9 0.7 - 3.8 [facility] PATHOLOGY AND GENOMIC MEDICINE Alkaline phosphatase 77 30 - 120 U/L [facility] PATHOLOGY AND GENOMIC MEDICINE AST 10 (L) 15 - 37 U/L [facility] PATHOLOGY AND GENOMIC MEDICINE ALT 14 (L) 30 - 65 U/L [facility] PATHOLOGY AND GENOMIC MEDICINE Total bilirubin 0.5 0.2 - 1.2 mg/dL [facility] PATHOLOGY AND GENOMIC MEDICINE Specimen Plasma specimen Performing Organization Address City/[facility]/Zipcode Phone Number [facility] [address] [place] [address] PATHOLOGY AND GENOMIC MEDICINE * ECG 12 lead (05/12/2017 9:15 PM CLIP WRAPPER) Only the most recent of 3 results within the time period is included. Ventricular rate 62 [facility] Atrial rate 62 [facility] NM interval 130 [facility] QRSD interval 86 [facility] QT interval 426 [facility] QTC interval 432 [facility] P axis 1 53 [facility] QRS axis 1 53 [facility] T wave axis 59 [facility] MUSE EKG impression Normal sinus rhythm-Normal [facility] MUSE ECG-In automated comparison with ECG of 12-MAY-2017 16:17,-No significant change was found- Performing Organization Address [facility] Unit[facility] Phone Number [facility] MUSE [address] [place] [address] * XR Chest 1 Vw Portable (05/12/2017 4:32 PM CLIP WRAPPER) Narrative Performed At EXAMINATION:XR CHEST 1 VW PORTABLE [facility] CLINICAL HISTORY:Chest Pain COMPARISON:None IMPRESSION: Unremarkable single view chest The lungs are clear. The heart is not enlarged. Mild vascular ectasia of the aorta is present The bony structures are within normal limits. [id number] Procedure Note Hm Interface, Radiology Results Incoming - 05/12/2017 4:38 PM CLIP WRAPPER EXAMINATION: XR CHEST 1 VW PORTABLE CLINICAL HISTORY: Chest Pain COMPARISON: None IMPRESSION: Unremarkable single view chest The lungs are clear. The heart is not enlarged. Mild vascular ectasia of the aorta is present The bony structures are within normal limits. [id number] Performing Organization Address [facility] Phone Number [facility] [address] [place] [address] * Hepatic function panel (05/12/2017 11:07 AM CLIP WRAPPER) Albumin 3.3 3.2 - 5.0 g/dL [facility] PATHOLOGY AND GENOMIC MEDICINE Total bilirubin 0.5 0.2 - 1.2 mg/dL [facility] PATHOLOGY AND GENOMIC MEDICINE Bilirubin direct 0.1 0.0 - 0.4 mg/dL [facility] PATHOLOGY AND GENOMIC MEDICINE Alkaline phosphatase 84 30 - 120 U/L [facility] PATHOLOGY AND GENOMIC MEDICINE Protein 7.0 6.3 - 8.2 g/dL [facility] PATHOLOGY AND GENOMIC MEDICINE ALT 13 (L) 30 - 65 U/L [facility] PATHOLOGY AND GENOMIC MEDICINE AST 7 (L) 15 - 37 U/L [facility] PATHOLOGY AND GENOMIC MEDICINE Specimen Plasma specimen Performing Organization Address City/State/Zipcode Phone Number [facility] [place] [address] PATHOLOGY AND GENOMIC MEDICINE after 03/09/2017 Insurance Payer Benefit Subscriber ID Type Phone Address Plan / Group BCBS BCBS xxxxxxxxx PPO CHOICE PPO/[employer] PPO MEDICARE MEDICARE xxxxxxxxxx Medicare [place], [place] PART A AND B Advance Directives Patient has advance care planning documents on file. For more information, hilary null contact: Leobardo Forrest [address] [place] [address]
[2018-03-10] MEDS: METHYLPREDNISOLONE SOD SUCC 125 MG/2ML VIAL IV SCH (17:43)
[2018-03-10] MEDS: BENZONATATE 100 MG CAP PO SCH (21:56)
[2018-03-11] VITALS (12 sets, daily range): BP systolic 102–139; BP diastolic 51–99
[2018-03-11] MEDS: METHYLPREDNISOLONE SOD SUCC 125 MG/2ML VIAL IV SCH (06:28)
[2018-03-11] MEDS ORDERED: ALBUTEROL SULFATE HFA 8GM INHALATION AEROSOL INH PRN (07:00)
[2018-03-11] MEDS ORDERED: GUAIFENESIN/DEXTROMETHORPHAN LIQD 5 ML UDC PO PRN (07:15)
[2018-03-11] MEDS ORDERED: NON-FORMULARY MEDICATION (Benzonatate (Tessalon Perle) 100 MG) PO SCH (09:00)
[2018-03-11] MEDS ORDERED: AZITHROMYCIN 500 MG PO SCH (09:00)
[2018-03-11] MEDS: BENZONATATE 100 MG CAP PO SCH ×5 (09:00→20:10)
[2018-03-11] MEDS: FAMOTIDINE 20 MG TAB PO SCH ×2 (09:04→16:30)
[2018-03-11] MEDS: LORATADINE 10 MG TAB PO SCH (09:05)
[2018-03-11] MEDS: AZITHROMYCIN 250 MG TAB PO SCH (09:05)
[2018-03-11] MEDS: PREDNISONE 20 MG TAB PO SCH (09:05)
[2018-03-11] MEDS: HYDRALAZINE HCL 25 MG TAB PO SCH ×3 (09:05→20:09)
[2018-03-11] MEDS ORDERED: GUAIFENESIN NG SCH (14:00)
[2018-03-11] MEDS ORDERED: DEXTROMETHORPHAN NG SCH (14:00)
[2018-03-11 14:38] LABS: BASOPHILS % 0.1 % (0.0-1.0); HEMATOCRIT 40.9 % (34.2-44.1); HEMOGLOBIN 14.1 g/dL (12.0-16.0); LYMPHOCYTES # (AUTO) 0.9 (1.0-3.2); LYMPHOCYTES % 6.2 % (18.0-39.1); MEAN CORPUSCULAR HGB CONC 34.5 g/dL (31-35); MEAN CORPUSCULAR VOLUME 84.2 fL (81-99); MONOCYTES # (AUTO) 0.5 (0.2-0.8); MONOCYTES % 3.6 % (4.4-11.3); NEUTROPHILS # (AUTO) 13.3 (2.1-6.9); NEUTROPHILS % 89.2 % (38.7-80.0); PLATELET COUNT 406 x10e3/uL (140-360); RED BLOOD COUNT 4.86 x10e6/uL (3.6-5.1)
[2018-03-11 15:05] LABS: ANION GAP 15.7 mmol/L (8-16); BLOOD UREA NITROGEN 28 mg/dL (7-26); BUN/CREATININE RATIO 40 (6-25); CALCIUM 8.9 mg/dL (8.4-10.2); CARBON DIOXIDE 21 mmol/L (22-29); CHLORIDE 104 mmol/L (98-107); EST GLOMERULAR FILTRATION RATE > 60 ML/MIN (60-); GLUCOSE 147 mg/dL (74-118); POTASSIUM 3.7 mmol/L (3.5-5.1); SODIUM 137 mmol/L (136-145)
[2018-03-11] MEDS: DONEPEZIL HCL 5 MG TAB PO SCH (20:10)
[2018-03-11] MEDS: ATORVASTATIN 10 MG TAB PO SCH (20:10)
[2018-03-12] VITALS (9 sets, daily range): BP systolic 104–158; BP diastolic 56–95
[2018-03-12 07:47] LABS: BASOPHILS % 0.2 % (0.0-1.0); HEMATOCRIT 37.5 % (34.2-44.1); HEMOGLOBIN 12.8 g/dL (12.0-16.0); LYMPHOCYTES # (AUTO) 2.7 (1.0-3.2); LYMPHOCYTES % 22.8 % (18.0-39.1); MEAN CORPUSCULAR HEMOGLOBIN 28.8 pg (28-32); MEAN CORPUSCULAR HGB CONC 34.1 g/dL (31-35); MEAN CORPUSCULAR VOLUME 84.5 fL (81-99); MONOCYTES # (AUTO) 1.3 (0.2-0.8); MONOCYTES % 10.9 % (4.4-11.3); NEUTROPHILS # (AUTO) 7.8 (2.1-6.9); NEUTROPHILS % 65.1 % (38.7-80.0); PLATELET COUNT 305 x10e3/uL (140-360); RED BLOOD COUNT 4.44 x10e6/uL (3.6-5.1); RED CELL DISTRIBUTION WIDTH 12.1 % (11.7-14.4)
[2018-03-12 08:08] LABS: ANION GAP 10.1 mmol/L (8-16); BLOOD UREA NITROGEN 21 mg/dL (7-26); BUN/CREATININE RATIO 37 (6-25); CALCIUM 8.6 mg/dL (8.4-10.2); CARBON DIOXIDE 26 mmol/L (22-29); CHLORIDE 107 mmol/L (98-107); CREATININE, SERUM 0.57 mg/dL (0.57-1.11); EST GLOMERULAR FILTRATION RATE > 60 ML/MIN (60-); GLUCOSE 88 mg/dL (74-118); POTASSIUM 3.1 mmol/L (3.5-5.1); SODIUM 140 mmol/L (136-145)
[2018-03-12] MEDS: AZITHROMYCIN 250 MG TAB PO SCH (08:59)
[2018-03-12] MEDS: BENZONATATE 100 MG CAP PO SCH ×3 (08:59→21:00)
[2018-03-12] MEDS: PREDNISONE 20 MG TAB PO SCH (08:59)
[2018-03-12] MEDS: HYDRALAZINE HCL 25 MG TAB PO SCH ×3 (08:59→21:00)
[2018-03-12] MEDS: FAMOTIDINE 20 MG TAB PO SCH ×2 (08:59→16:29)
[2018-03-12] MEDS: LORATADINE 10 MG TAB PO SCH (08:59)
[2018-03-12] MEDS: ATORVASTATIN 10 MG TAB PO SCH (21:00)
[2018-03-12] MEDS: DONEPEZIL HCL 5 MG TAB PO SCH (21:00)
[2018-03-13 00:02] VITALS: BP 120/73
[2018-03-13 05:08] VITALS: BP 136/84
[2018-03-13 07:06] LABS: BASOPHILS % 0.2 % (0.0-1.0); EOSINOPHILS # (AUTO) 0.1 (0.0-0.4); EOSINOPHILS % 0.7 % (0.0-6.0); HEMATOCRIT 40.3 % (34.2-44.1); HEMOGLOBIN 13.5 g/dL (12.0-16.0); LYMPHOCYTES # (AUTO) 3.6 (1.0-3.2); LYMPHOCYTES % 35.3 % (18.0-39.1); MEAN CORPUSCULAR HEMOGLOBIN 28.6 pg (28-32); MEAN CORPUSCULAR HGB CONC 33.5 g/dL (31-35); MEAN CORPUSCULAR VOLUME 85.4 fL (81-99); MONOCYTES # (AUTO) 1.2 (0.2-0.8); MONOCYTES % 11.4 % (4.4-11.3); NEUTROPHILS # (AUTO) 5.3 (2.1-6.9); PLATELET COUNT 315 x10e3/uL (140-360); RED BLOOD COUNT 4.72 x10e6/uL (3.6-5.1); RED CELL DISTRIBUTION WIDTH 12.2 % (11.7-14.4)
[2018-03-13 07:23] LABS: ANION GAP 13.3 mmol/L (8-16); BLOOD UREA NITROGEN 19 mg/dL (7-26); BUN/CREATININE RATIO 31 (6-25); CALCIUM 8.5 mg/dL (8.4-10.2); CARBON DIOXIDE 23 mmol/L (22-29); CHLORIDE 106 mmol/L (98-107); CREATININE, SERUM 0.61 mg/dL (0.57-1.11); EST GLOMERULAR FILTRATION RATE > 60 ML/MIN (60-); GLUCOSE 77 mg/dL (74-118); POTASSIUM 3.3 mmol/L (3.5-5.1); SODIUM 139 mmol/L (136-145)
[2018-03-13] MEDS: HYDRALAZINE HCL 25 MG TAB PO SCH ×2 (10:00→16:40)
[2018-03-13] MEDS: BENZONATATE 100 MG CAP PO SCH ×2 (10:51→16:41)
[2018-03-13] MEDS: FAMOTIDINE 20 MG TAB PO SCH ×2 (10:51→16:41)
[2018-03-13] MEDS: PREDNISONE 20 MG TAB PO SCH (10:51)
[2018-03-13] MEDS: LORATADINE 10 MG TAB PO SCH (10:51)
[2018-03-13] MEDS: AZITHROMYCIN 250 MG TAB PO SCH (10:51)
[2018-03-13 11:53] VITALS: BP 106/59
[2018-03-13 16:35] VITALS: BP 110/61
== END 2018-03-13 18:15 | DRG 202 ==
LOC: ER 16:01 → ERHOLD 16:34 → MED/SURG2 03-11 16:25
PROVIDERS: ADMIT Internal Medicine; ATTEND Internal Medicine
DX: J20.9 Acute bronchitis, unspecified (principal); R47.01 Aphasia; F03.90 Unspecified dementia, unspecified severity, without behavioral disturbance, psychotic disturbance, mood disturbance, and anxiety; E66.9 Obesity, unspecified; Z68.31 Body mass index [BMI] 31.0-31.9, adult; M81.0 Age-related osteoporosis without current pathological fracture; I10 Essential (primary) hypertension
CPT/HCPCS: 36415; 80048; 85025; 99284; J0456; J2930; J7512